=== PATIENT | female | born 1950 | race Caucasian/White ===

== ENCOUNTER 2018-08-04 11:55 | Outpatient (REF) | payer OTHER, SELFPAY ==
--- NOTE | 2018-08-04 09:00 | PAPFT_PTH ---
PATIENT: Stephanie Clinton LOC: [facility] U#:[id number] AGE/SX: 67/F ROOM: RE08/04/[address]: Mae Mcdonnell NP : 1950 BED: DIS: 08/04/2018 SPEC #: [id number] RECD: 08/04/18 12:51 STATUS: BERNARD ORTIZ #: [id number] JOSE: 08/04/18 09:[address]: Mae Mcdonnell NP [facility] Cytology RECD BY: Maki Shipley ENTERED: 08/04/18 12:51 SP TYPE: PAPFT OT DR: None Tissues: 1 - CX/ENDOCX FOR PAP SMEARS Procedures: PAP THIN PREP/UVM Screening HPV DNA PROBE Comments: [id number]
== END 2018-08-04 12:15 ==
LOC: LBN 11:55
PROVIDERS: Visit Provider Nurse Practitioner Women's Health
DX: Z12.4 Encounter for screening for malignant neoplasm of cervix (principal); Z11.51 Encounter for screening for human papillomavirus (HPV)
CPT/HCPCS: 88142; 87624

== ENCOUNTER 2018-08-05 09:04 | Outpatient (CLI) | payer OTHER, SELFPAY ==
--- NOTE | 2018-08-05 13:20 | DI.COMBO_ITS ---
SYMPTOMS/DIAGNOSIS: SCREENING, ENLARGED AXILLARY LYMPH NODES AND THICK TISSUE BILATERALLY, R59.0, N64.59 MAMMOGRAMS, BILATERAL ADDITIONAL VIEWS AND BILATERAL BREAST ULTRASOUND: Mammograms were interpreted according to the usual protocol including computer analysis with CAD system, tomosynthesis and C view imaging. Additional images are interpreted according to the usual protocol including tomosynthesis and 2D imaging. RIGHT MAMMOGRAM, ADDITIONAL VIEWS AND RIGHT BREAST ULTRASOUND: Comparison is made with prior examinations. Breast density C. There are enlarged lymph nodes seen in the right axilla. These appear to have increased in size and irregularity compared to the prior examination. No suspicious intraparenchymal mass or microcalcifications are seen. The skin is unremarkable. A right breast ultrasound was performed. The right axilla was evaluated sonographically. There are multiple lymph nodes seen in the right axilla. The majority of the lymph nodes are hypoechoic with a hyperechoic vascular notch; however, there are several hypoechoic irregular lymph nodes in the right axilla, the largest measures 2 x 1.5 x 1.8 cm. LEFT MAMMOGRAM, ADDITIONAL VIEWS AND LEFT BREAST ULTRASOUND: Breast density C. There are three partially obscured nodules in the upper outer quadrant of the left breast not present on the prior examination. There do appear to be enlarged irregular lymph nodes in the left axilla. No suspicious microcalcifications are seen. The skin is unremarkable. Left breast ultrasound was performed. The upper outer quadrant and left axilla were evaluated sonographically. There is a hypoechoic 0.7 x 0.9 cm nodule at the 3 o'clock position of the left breast 6 cm from the nipple. Its orientation is antiradial. There is a complex cystic lesion at the 3 o'clock position 8 cm from the nipple measuring 0.8 cm. There does appear to be some associated blood flow. At the 2 o'clock position of the left breast 9 cm from the nipple, there is a radially oriented well circumscribed hypoechoic nodule measuring 0.8 cm. No internal blood flow, posterior acoustic enhancement or shadowing is seen. In the left axilla, multiple lymph nodes are seen, most are hypoechoic with a hyperechoic vascular notch. There are a few enlarged homogeneously hypoechoic nodules in the left axilla, the largest measuring 2.2 x 1.7 x 1.7 cm.. IMPRESSION: 1. Left breast nodules as described, the largest measuring 1.1 cm. These are located in the upper outer quadrant of the left breast and appear to correspond to the mammographic findings. 2. Sonographically abnormal-appearing lymph nodes in the axilla bilaterally. In this patient, followup is recommended. This may include biopsy of breast lesions and abnormal axillary lymph nodes. Alternatively, an MRI of the breast with and without contrast and CT scans of the neck and chest are recommended with contrast to assess for additional adenopathy. Category 4, breast density C. The findings were discussed with the patient on the date of the examination. Mae Mcdonnell was also contacted with these results on the date of the examination. [facility] ASSESSMENT OF FINDINGS: Suspicious. Biopsy should be considered. Category 4. Patient will receive a letter notifying them of these results. Bi-RADS category C. The breasts are heterogeneously dense, which may obscure small masses.
== END 2018-08-05 09:24 ==
PROVIDERS: Visit Provider Nurse Practitioner Women's Health
DX: N64.59 Other signs and symptoms in breast (principal); R59.0 Localized enlarged lymph nodes; Z12.31 Encounter for screening mammogram for malignant neoplasm of breast; N63.21 Unspecified lump in the left breast, upper outer quadrant
CPT/HCPCS: 76642; 77062; 77066; G0279

== ENCOUNTER 2018-08-17 00:33 | Outpatient (CLI) | payer OTHER, SELFPAY ==
[2018-08-17 09:08] LABS: CREATININE 1.14 mg/dL (0.55-1.02); Estimated GFR 47.69 (mL/min/1.73m2)
--- NOTE | 2018-08-17 10:50 | DI.CT_ITS ---
SYMPTOMS/DIAGNOSIS: CERVICAL, AXILLARY AND INGUINAL LYMPHADENOPATHY, R59.1, ENLARGED LYMPH NODE CT SCAN OF THE NECK, CHEST, ABDOMEN AND PELVIS: CT SCAN OF THE ABDOMEN AND PELVIS: The liver is normal in size. No hepatic masses seen. The portal, superior mesenteric and splenic veins are patent. The patient is status post cholecystectomy. No biliary ductal dilatation is present. There is fatty atrophy of the pancreas. The spleen is enlarged measuring 14 cm. There is no evidence of an adrenal mass. There is extensive retroperitoneal, inguinal and iliac adenopathy present. There is extensive soft tissue seen at the level of the renal arteries, particularly on the left paraaortic region. There is soft tissue which appears to encircle the left renal vein. In aggregate, this area measures 6 x 5.7 cm. It extends inferiorly along the left paraaortic region and causes obstruction of the left ureter with moderate dilatation of the left renal collecting system and delayed enhancement of the left kidney. Extensive paraaortic adenopathy and aortocaval adenopathy is present. Just above the level of the aortic bifurcation, there is extensive adenopathy on the right measuring 2.3 x 3.1 cm, on the left measuring 3.3 x 3.4 cm. External iliac adenopathy is seen bilaterally. On the left, it measures 4.8 x 2.6 cm. On the right, there is a 3.6 x 1.8 cm lymph node. Extensive bilateral inguinal adenopathy is present; on the left measuring 3.5 x 2.2 cm, on the right measuring 3.2 x 1.9 cm. The right kidney shows normal enhancement. There is mild dilatation of the proximal right ureter to the level of the bifurcation of the common iliac artery. The urinary bladder is intact. There are calcified masses seen in the uterus, most consistent with calcified uterine fibroids. There is diverticulosis of the sigmoid colon, but no evidence of acute diverticulitis. There is a moderate amount of retained stool in the colon. No findings to suggest an acute appendicitis are present. A normal appendix is seen in the right lower quadrant. No significant abdominal or pelvic ascites or pneumoperitoneum is present. There is atherosclerosis of the abdominal aorta but no aneurysmal dilatation is seen. There is extensive retroperitoneal adenopathy surrounding the abdominal aorta and common iliac arteries bilaterally. Degenerative changes are seen in the spine. IMPRESSION: 1. Extensive abdominal and pelvic adenopathy. The findings are suspicious for lymphoma or leukemia. Metastatic disease should also be considered. 2. Bilateral retroperitoneal adenopathy causing mild obstruction of the right kidney. There is marked obstruction of the left kidney with delayed enhancement and dilatation of the collecting system. 3. Extensive retroperitoneal adenopathy surrounding the abdominal aorta. 4. Incidental findings of colonic diverticulosis and fibroid uterus. CT SCAN OF THE CHEST: There is extensive supraclavicular, axillary and mediastinal adenopathy present. The largest lymph node in the left axilla measures 2.8 x 2.7 cm. The largest lymph node in the right axilla measures 2.8 x 1.5 cm. The largest lymph node in the mediastinum measures 1.3 cm. The abdominal aorta is of normal caliber. Heart size is within normal limits. No significant pericardial effusion is seen. No pleural effusion or pneumothorax is identified. Atelectatic changes are seen in the lung bases. There is scarring or atelectasis in the lingula. No focal consolidating infiltrates are seen. The tracheobronchial tree is unremarkable. No noncalcified pulmonary nodules are appreciated. Degenerative changes are seen in the spine. IMPRESSION: Extensive thoracic adenopathy. Lymphoma or leukemia should be considered including metastatic disease. Inflammatory or infectious adenopathy may also be considered. CT SCAN OF THE NECK: There is extensive supraclavicular and cervical adenopathy present. The largest lymph node in the left neck is seen at the angle of the mandible and measures 1.3 x 1.4 cm. The largest lymph node in the right neck is also at the angle of the mandible and measures 1.9 x 1.5 cm. The nasopharynx, oropharynx, hypopharynx and larynx are unremarkable. The thyroid has a normal appearance. The submandibular gland appears unremarkable. There are hyperdense nodules seen within and next to the parotid gland, likely reflecting adenopathy. The retropharyngeal space has a normal appearance. The orbits and retroorbital soft tissues are unremarkable. The visualized paranasal sinuses are clear. The mastoid air cells are well pneumatized. The calvarium is intact. IMPRESSION: Extensive cervical adenopathy.
[2018-08-17] MEDS: Omnipaque 350 MG/ML 100 ML BTL IJ (11:00)
[2018-08-17] MEDS: Omnipaque 350 MG/ML 50 ML BTL PO (11:01)
[2018-08-17] MEDS: Breeza Beverage 473 ML BTL PO (11:01)
== END 2018-08-17 00:53 ==
PROVIDERS: Visit Provider Surgery
DX: R59.1 Generalized enlarged lymph nodes (principal); D25.9 Leiomyoma of uterus, unspecified; K57.30 Diverticulosis of large intestine without perforation or abscess without bleeding
CPT/HCPCS: 70491; 74177; 71260; 82565; J3490; Q9967

== ENCOUNTER 2018-08-24 07:28 | Day surgery (SDC) | payer OTHER, SELFPAY ==
--- NOTE | 2018-08-24 07:20 | ROE_ITS ---
Date of service: 08/24/18 Time of Service: 08:48 Operative Note DATE OF PROCEDURE: 08/24/18 PRE-OP DIAGNOSIS: General Lymphadenopathy POST-OP DIAGNOSIS: same PROCEDURE: Open right inguinal lymph node biopsy SURGEON: Megan Nevarez ANESTHESIA: other (general/ ASA 2/ Jeff Montoya, AUREA) ESTIMATED BLOOD LOSS: 5 PATHOLOGY: other (lymph node) COMPLICATIONS: None Patient was transported to: same day Patient's condition: stable Indications: Mrs. Clinton is a pleasant 67 year old female who was seen in the office for lymphadenopathy and question Breast lesion. CT scan showed extensive lymphadenopathy throughout. Biopsy was recommended for diagnosis. Risks, benefits and complications were reviewed and she wished to proceed. No guarantees were given or impleid. Findings: Enlarge lymphnodes Procedure Description: After informed consent was obtained the patient was taken to the Operating room and placed in a supine position on the bed. The patient was placed under General anesthesia without airway. Once comfortable the right groin was prepped and adraped in a standard surgical fashion. At this point a time out was done. The patients name, , procedure site and type, allergies to medications, antibiotic prophilaxis and DVT prophilaxis were reviewed. Fire risk was assessed. Next 0.25% Bupivocaine was injected in the right groin over a palpable lymph node. A 2 cm incision was made with a 15 blade. Dissection was taken down to the subcutaneous tissue with cautery. The fascia was opened with cuatery. A Weitlander retractor was used to keep the skin and subcutaneous tissue . Using a hemostat the fat was dissected away from an enlarged lymph node. The dissection was continued all around. Cautery was used to go through the efferent and afferent vessels. The lymph node was removed and placed in formalin. The wound was inspected. No bleeding was noted. The subcutaneous tis gloria was re-approximated using a 3-0 Vicryl interreptued stitch. The dermis was re-approximated using 4-0 vicryl running stitch. The skin was cleaned and dried and skinafix was applied. Needle, instrument and lap counts were correct at the end of the case. The patient was woken up and taken back to [facility] in stable condition.
--- NOTE | 2018-08-24 07:20 | W.PM.DSUDISC ---
Discharge Plan Disposition Patient Disposition: HOME Condition: Good Discharge Details Reason For Visit: Generalized lymphadenopathy Attending Provider: Megan Nevarez Primary Care Provider: None,None Home Meds and New Rx's Prescriptions: New acetaminophen [Tylenol] 325 mg Tablet 650 mg PO Q6H PRN (Reason: pain) Qty: 30 RF: 0 ibuprofen [IBU] 600 mg Tablet 600 mg PO Q6H PRN PRN (Reason: Pain) Qty: 30 RF: 0 Continued vitamin B complex [B Complex 1] tablet 1 tab PO DAILY RF: 0 biotin 5 mg capsule 5 mg PO DAILY RF: 0 ketotifen fumarate [Zaditor] 0.025 % (0.035 %) Drops 1 drp OPHTHALMIC (EYE) BID RF: 0 Discharge Instructions Instructions: Lymph Node Biopsy (DC) Additional Instructions: Activity at Home after surgery: 1. Make sure you walk outside at least 4 times per day 2. You should be able to climb a flight of stairs 3. No driving while in pain or taking pain medications 4. No strenuous activity or heavy lifting for 2 weeks (laparoscopic surgery) or 4 weeks (open surgery) Diet, Nutrition, & wound healin. Avoid alcohol until after you are recovered from your surgery 2. Make sure to eat plenty of lean protein (meat, fish, eggs, cottage cheese, beans) 3. Eat a variety of fruits and vegetables. Eat plenty of high fiber foods to avoid constipation. 4. Drink plenty of liquids to stay hydrated and avoid constipation Pain Medications: 1. Alternate Tylenol 1000 mg and Ibuprofen 600 mg every 3 hours 2. If a narcotic has been prescribed take as directed only for breakthrough pain For Constipation: 1. Take Milk of Magnesia or MiraLax as needed for constipation Other: 1. You may shower daily. Do not scrub the incisions 2. Do not soak the incisions for 1 week 3. You may alternate ice and heat as needed for pain and swelling Wound Care: 1. Keep the incisions clean and dry Other Services that may have been ordered: 0 Home Health- to help with dressing changes 0 Outpatient physical therapy Please call our office if you develop: 1. Fevers >101.5 2. Nausea or Vomiting 3. Worsening pain 4. Redness and thick discharge from the wounds If after hours please call the Hospital at and ask to speak to the on-call surgeon Stand Alone Forms: DSU Post op Instructions, Wang Nair (DSU) Referrals: Megan Nevarez MD [ [facility] STAFF PHYSICIAN] - 09/06/18 1:30 pm Activity:: Activity as Tolerated Diet:: As Tolerated Discharge Orders Discharge Orders: Discharge Order (Routine); Ordered 08/24/18 Ordered By: Megan Nevarez DS: Diagnosis Discharge Diagnosis (1) Lymphadenopathy, generalized: Status: Acute (2) H/O lymph node excision: Status: Acute
--- NOTE | 2018-08-24 07:25 | PDOC.DSDIS_ITS ---
Discharge Plan Disposition Patient Disposition: HOME Condition: Good Discharge Details Reason For Visit: Generalized lymphadenopathy Attending Provider: Megan Nevarez Primary Care Provider: None,None Home Meds and New Rx's Prescriptions: New acetaminophen [Tylenol] 325 mg Tablet 650 mg PO Q6H PRN (Reason: pain) Qty: 30 RF: 0 ibuprofen [IBU] 600 mg Tablet 600 mg PO Q6H PRN PRN (Reason: Pain) Qty: 30 RF: 0 Continued vitamin B complex [B Complex 1] tablet 1 tab PO DAILY RF: 0 biotin 5 mg capsule 5 mg PO DAILY RF: 0 ketotifen fumarate [Zaditor] 0.025 % (0.035 %) Drops 1 drp OPHTHALMIC (EYE) BID RF: 0 Discharge Instructions Instructions: Lymph Node Biopsy (DC) Additional Instructions: Activity at Home after surgery: 1. Make sure you walk outside at least 4 times per day 2. You should be able to climb a flight of stairs 3. No driving while in pain or taking pain medications 4. No strenuous activity or heavy lifting for 2 weeks (laparoscopic surgery) or 4 weeks (open surgery) Diet, Nutrition, & wound healin. Avoid alcohol until after you are recovered from your surgery 2. Make sure to eat plenty of lean protein (meat, fish, eggs, cottage cheese, beans) 3. Eat a variety of fruits and vegetables. Eat plenty of high fiber foods to avoid constipation. 4. Drink plenty of liquids to stay hydrated and avoid constipation Pain Medications: 1. Alternate Tylenol 1000 mg and Ibuprofen 600 mg every 3 hours 2. If a narcotic has been prescribed take as directed only for breakthrough pain For Constipation: 1. Take Milk of Magnesia or MiraLax as needed for constipation Other: 1. You may shower daily. Do not scrub the incisions 2. Do not soak the incisions for 1 week 3. You may alternate ice and heat as needed for pain and swelling Wound Care: 1. Keep the incisions clean and dry Other Services that may have been ordered: 0 Home Health- to help with dressing changes 0 Outpatient physical therapy Please call our office if you develop: 1. Fevers >101.5 2. Nausea or Vomiting 3. Worsening pain 4. Redness and thick discharge from the wounds If after hours please call the Hospital at and ask to speak to the on-call surgeon Stand Alone Forms: DSU Post op Instructions, Wang Nair (DSU) Referrals: Megan Nevarez MD [ [facility] STAFF PHYSICIAN] - 09/06/18 1:30 pm Activity:: Activity as Tolerated Diet:: As Tolerated Discharge Orders Discharge Orders: Discharge Order (Routine); Ordered 08/24/18 Ordered By: Megan Nevarez DS: Diagnosis Discharge Diagnosis (1) Lymphadenopathy, generalized: Status: Acute (2) H/O lymph node excision: Status: Acute
[2018-08-24 07:50] VITALS: BP 145/82; PULSE 73; RESP 16; TEMP 36.9; O2SAT 96
[2018-08-24] MEDS: Lactated Ringers 1,000 ML 80 ML IV (08:03)
[2018-08-24] MEDS: ceFAZolin 2 GM/50 ML BAG IVPB (08:37)
[2018-08-24] MEDS: Bupivacaine 0.25% Pres-Free 30 ML VIAL (08:48)
--- NOTE | 2018-08-24 08:55 | LYM_PTH ---
PATIENT: Stephanie Clinton LOC: [facility] U#:[id number] AGE/SX: 67/F ROOM: RE08/24/[address]: Megan Nevarez MD : 1950 BED: DIS: 08/24/2018 SPEC #: [id number] RECD: 08/24/18 12:59 STATUS: BERNARD REQ #: [id number] JOSE: 08/24/18 08:[address]: Megan Nevarez DEPT: Surgical Specimen RECD BY: Maki Shipley ENTERED: 08/24/18 13:00 SP TYPE: LYM OTHR DR: None Tissues: 1 - LYMPH NODE BIOPSY Procedures: GROSS AND MICRO LEVEL 4 IMMUNOPEROXIDASE STAIN MIB-1 IHC Semi Quantative % Comments: [id number]
[2018-08-24] MEDS: Bupivacaine LIPOSOME/PF 133 MG/10 ML VIAL IJ (08:57)
[2018-08-24 09:46] VITALS: BP 138/69; PULSE 60; RESP 16; TEMP 36.6; O2SAT 98
== END 2018-08-24 10:15 | disposition home or self-care (01) ==
LOC: SUR 07:29
PROVIDERS: Referring Provider Surgery; Visit Provider Surgery
PROC: (CPT 38500; principal; 2018-08-24 09:00)
DX: C82.15 Follicular lymphoma grade II, lymph nodes of inguinal region and lower limb (principal); C82.05 Follicular lymphoma grade I, lymph nodes of inguinal region and lower limb
CPT/HCPCS: 38500; 88305; 88360; 88361; J0690; J2250; J2405

== ENCOUNTER 2018-09-26 10:37 | Day surgery (SDC) | payer OTHER, SELFPAY ==
--- NOTE | 2018-09-26 06:55 | HPE_ITS ---
Date of service: 09/26/18 Time of Service: 12:16 Assessment and Plan (1) Non Hodgkin's lymphoma: Current visit: No Status: Chronic A\\ Non-Hodgkins lymphoma Needs Medi-port for Chemotherapy P\\ Subclavian vein Port placement Risks, benefits, complications of the procedure were reviewed with her. Complications include but are not limited to bleeding infection seroma hematoma wound dehiscence skin necrosis, pneumothorax, injury to subclavian vein or artery, mouth function and adverse reaction to the medications. Questions were entertained and answered to her satisfaction and she wished to proceed. No guarantees were given or implied. Qualifiers: Follicular lymphoma grade: grade IIIa Lymphoma site: multiple regions Non-Hodgkin lymphoma type: follicular Qualified Code(s): C82.38 - Follicular lymphoma grade IIIa, lymph nodes of multiple sites History of Present Illness Narrative: Mrs. Clinton is here today to discuss placement of a Mediport for chemotherapy. She was recently diagnosed with non-Hodgkin's lymphoma. The patient has been started on prednisone by oncology to reduce some of the obstructive nature of her lymphadenopathy in the abdomen. She is getting ready to start her first chemotherapy treatment this week. Review of Systems Constitutional Denies fever(s) and Denies night sweats Cardiovascular Denies chest pain, Denies rapid heart rate, Denies irregular heart rhythm, Denies palpitations, Denies dyspnea and Denies dyspnea on exertion Respiratory Denies cough, Denies dyspnea and Denies dyspnea on exertion Endocrine Denies palpitations [facility] Medical History Lymphadenopathy, generalized (Acute) Non Hodgkin's lymphoma (Chronic) Osteoarthritis (Chronic) Rosacea (Acute) Telogen effluvium (Chronic) Surgical History Colonoscopy - MAC (12/13/15) H/O lymph node excision (Acute ~08/24/18) History of cholecystectomy (Chronic) History of knee replacement (Chronic) Family History Sister Colon cancer Breast CA Brother Brain cancer Father Heart failure Heart disease Maternal Grandfather Tiffanie syndrome Paternal Grandfather Stroke Mother Alzheimer disease Social History Smoking/Tobacco Use Status: Former Tobacco Use Quit Date: 03/08/94 Alcohol Intake: current Alcohol Intake frequency: 3 or more drinks per day Alcohol type: wine and hard liquor Drug use: Never Substance use type: does not use Details: Pt states 2-3, usually wine/daily; quit smoking est 1988. Last alcohol: t-1, one drink Do you feel safe at home: Yes Do you feel safe in your relationship?: Yes Female Reproductive History Menstrual Menopause type: natural Meds Home Medications Medication Instructions Recorded Confirmed Type biotin 5 mg capsule 5 mg PO DAILY 08/04/18 09/26/18 History vitamin B complex 1 tab PO DAILY 08/04/18 09/26/18 History acetaminophen [Tylenol] 650 mg PO Q6H PRN #30 tab 08/24/18 09/06/18 Rx ibuprofen [IBU] 600 mg PO Q6H PRN PRN #30 tab 08/24/18 09/26/18 Rx prednisone 60 mg PO DAILY 09/26/18 09/26/18 History Allergies Allergy/AdvReac Type Severity Reaction Status Date / Time No Known Drug Allergies Allergy Verified 09/26/18 10:51 Exam Const General: cooperative Orientation: alert and oriented x3 HENMT Head: normocephalic and atraumatic Resp Effort & Inspection: normal respiratory effort Auscultation: clear to auscultation bilaterally Cardio Rate: regular rate Rhythm: regular rhythm Heart Sounds: no gallops, no murmurs and no rubs
--- NOTE | 2018-09-26 07:00 | W.PM.OP ---
Date of service: 09/26/18 Time of Service: 14:02 Operative Note DATE OF PROCEDURE: 09/26/18 PRE-OP DIAGNOSIS: Non-Hodgkins lymphoma POST-OP DIAGNOSIS: same PROCEDURE: left Subclavian vein Port-a-cath placement SURGEON: Megan Nevarez ANESTHESIA: other (General/ ASA 2/Moe Nowak CRNA ) ESTIMATED BLOOD LOSS: 5 PATHOLOGY: none sent COMPLICATIONS: None Patient was transported to: same day Patient's condition: stable Implants: Power Port REF [id number] Indications: Mrs. Clinton is a pleasant 67-year-old female who I recently diagnosed with non-Hodgkin's lymphoma. She was seen by hematology oncology and has been started on prednisone. She is due to start chemotherapy this week. I was asked to place a Mediport for chemotherapy. Risks, benefits and complications were reviewed with her and she wished to proceed. No guarantees were given or implied. Procedure Description: After informed consent was obtained the patient was taken to the operating room and placed in supine position. The patient was placed under deep sedation and once comfortable the right and left chest were prepped and draped in a sterile surgical fashion. At this point a timeout was done. The patient's name, date of , procedure to be done, potential complications, DVT prophylaxis, antibiotic given were all reviewed. Fire risk was assessed. Next 2% lidocaine mixed with half percent Marcaine with epi was injected around the clavicle on the left side as well as into the dermis and subcutaneous tissue of the left chest wall about 1 1/2 below the clavicle. A power port kit was opened and using the large 18-gauge needle the subclavian vein was found and venous blood was easily aspirated. The syringe was removed and the guidewire was placed without any difficulty into the subclavian vein. The needle was removed. Fluoroscopy was then done which confirmed the placement of the guidewire. A small incision was made in the skin with the guidewire entered. An incison was also made into the dermis about 1 1/2 below the clavicle with a 15 blade. Using cautery a pocket was created for the port. Using the tunneler the catheter was tunneled from the newly created pocket to the guidewire. An attempt was made to place the dilator and sheath over the guidewire into the subclavian vein, but there was too much resistance. The dilator and sheeth were removed as was the guidewire. The Subclavian vein was again found with the 18 guage needle and a wire was again placed with difficulty. Fluoroscopy was again done to confirm placement. The dilator and sheeth were placed over the guidewire into the subclavian vein without difficulty. The dilator and guidewire were removed. The catheter was then advanced through the sheath into the subclavian vein. While holding the catheter in place at the skin the sheath was removed. Fluoroscopy was then used again and the catheter was noted to be within the atrium and so it was pulled up until it was just above the atrium. The catheter was then cut to the right length and attached to the port. The port was placed into the pocket and fit snugly. The port was then flushed with 10 cc of heparin. The skin was closed using 4-0 Vicryl. The skin was cleaned and dried and skin affix was applied to the port site as well as to the small stab incision underneath the clavicle. The patient was woken up and taken back to same day surgery in stable condition. Sponge, instrument, and needle counts were correct at the end of the case. A stat chest x-ray was ordered and done in same-day surgery it was read by me and it looked in good position and no pneumothorax was appreciated.
--- NOTE | 2018-09-26 07:04 | W.PM.DSUDISC ---
Discharge Plan Disposition Patient Disposition: HOME Condition: Good Discharge Details Reason For Visit: NON HODGKINS LYMPHOMA Attending Provider: Megan Nevarez Primary Care Provider: None,None Home Meds and New Rx's Prescriptions: Continued vitamin B complex [B Complex 1] tablet 1 tab PO DAILY RF: 0 biotin 5 mg capsule 5 mg PO DAILY RF: 0 acetaminophen [Tylenol] 325 mg Tablet 650 mg PO Q6H PRN (Reason: pain) Qty: 30 RF: 0 ibuprofen [IBU] 600 mg Tablet 600 mg PO Q6H PRN PRN (Reason: Pain) Qty: 30 RF: 0 No Action prednisone 20 mg Tablet 60 mg PO DAILY RF: 0 Discharge Instructions Instructions: Implanted Venous Access Port (GEN) Additional Instructions: Activity at Home after surgery: 1. Make sure you walk outside at least 4 times per day 2. You should be able to climb a flight of stairs 3. No driving while in pain or taking pain medications 4. No strenuous activity or heavy lifting for 2 weeks (laparoscopic surgery) Diet, Nutrition, & wound healin. Avoid alcohol until after you are recovered from your surgery 2. Make sure to eat plenty of lean protein (meat, fish, eggs, cottage cheese, beans) 3. Eat a variety of fruits and vegetables. Eat plenty of high fiber foods to avoid constipation. 4. Drink plenty of liquids to stay hydrated and avoid constipation Pain Medications: 1. Alternate Tylenol 650 mg and Ibuprofen 600 mg every 3 hours 2. If a narcotic has been prescribed take as directed only for breakthrough pain For Constipation: 1. Take Milk of Magnesia or MiraLax as needed for constipation Other: 1. You may shower daily. Do not scrub the incisions 2. Do not soak the incisions for 1 week 3. You may alternate ice and heat as needed for pain and swelling Wound Care: 1. Keep the incisions clean and dry Please call our office if you develop: 1. Fevers >101.5 2. Nausea or Vomiting 3. Worsening pain 4. Redness and thick discharge from the wounds If after hours please call the Hospital at and ask to speak to the on-call surgeon Activity:: Activity as Tolerated Diet:: As Tolerated DS: Diagnosis Discharge Diagnosis (1) Non Hodgkin's lymphoma: Status: Chronic
[2018-09-26 10:57] VITALS: BP 136/77; PULSE 65; RESP 16; TEMP 36.5; O2SAT 96
[2018-09-26] MEDS: Lactated Ringers 1,000 ML 80 ML IV (11:35)
[2018-09-26] MEDS: ceFAZolin 2 GM/50 ML BAG IVPB (13:33)
[2018-09-26] MEDS: Heparin 500 UNITS/5 ML SYRINGE (13:49)
[2018-09-26] MEDS: Lidocaine 2% Multi-Dose 50 ML VIAL (13:49)
--- NOTE | 2018-09-26 13:57 | DI.RAD_ITS ---
SYMPTOMS/DIAGNOSIS: PORT PLACEMENT PORT PLACEMENT IN THE OR: Fluoroscopy Time: 22.9 S, 3.34 mGY Fluoroscopy was utilized by Dr. Nevarez during the placement of an indwelling central venous catheter. Single hardcopy image shows the tip of the catheter in good position in the region of the superior vena cava. Please refer to the procedure report for complete details. PORTABLE AP CHEST: The heart size and pulmonary vasculature are within normal limits. An indwelling central venous catheter is in place. The tip of the catheter is in good position in the superior vena cava. No pneumothorax or pleural effusion is seen. No focal consolidating infiltrates are present in the lungs. IMPRESSION: Placement of a Mediport. No pneumothorax or pleural effusion.
[2018-09-26 14:27] VITALS: BP 118/70; PULSE 59; RESP 16; TEMP 36.6; O2SAT 99
== END 2018-09-26 15:50 | disposition home or self-care (01) ==
LOC: SUR 10:38
PROVIDERS: Visit Provider Surgery
PROC: (CPT 36561; principal; 2018-09-26 11:15)
DX: C82.38 Follicular lymphoma grade IIIa, lymph nodes of multiple sites (principal); Z45.2 Encounter for adjustment and management of vascular access device
CPT/HCPCS: 36561; 71045; 76000; 77001; NC; C1788; J0690; J1100; J1885; J2250; J2405; J3010

== ENCOUNTER 2018-10-26 01:37 | Outpatient (RCR) | payer OTHER, SELFPAY ==
[2018-10-12] MEDS: Normal Saline Flush 10 ML SYR IVP (11:05)
[2018-10-12] MEDS: Heparin 500 UNITS/5 ML SYRINGE IV (11:05)
[2018-10-12 11:28] LABS: Abs Immature Grans 0.01 k/cumm (0.0-0.09); Absolute Basophil Count 0.12 k/cumm (0.0-0.2); Absolute Lymphocyte Count 1.07 k/cumm (1.2-3.4); Absolute Monocyte Count 0.66 k/cumm (0.11-0.7); Absolute Neutrophil Count 2.48 k/cumm (1.2-6.7); Basophils % 2.6; Eosinophils % 6.5; HCT 35.9 % (36.0-46.0); Immature Grans % 0.2; Lymphocytes % 23.1; Mean Corp. HGB Concentration 33.4 g/dL (32.0-36.0); Mean Corpuscular Hemoglobin 31.5 pg (27.0-33.0); Mean Corpuscular Volume 94.2 fL (80-95); Mean Platelet Volume 9.9 fL (8.0-11.0); Monocytes % 14.2; Neutrophils % 53.4; Platelet Count 130 x1000/uL (130-400); RBC 3.81 m/cumm (4.00-5.20); RBC Distribution Width 12.5 % (11.7-14.6); White Blood Cell Count 4.64 k/cumm (4.4-10.8)
[2018-10-12 11:50] LABS: ALT 16 U/L (12-78); AST 10 U/L (15-37); Albumin 3.5 g/dL (3.4-5.0); Alkaline Phosphatase 63 U/L (46-116); Anion Gap 9.7 mmol/L (3-11); BUN 16 mg/dL (7-18); Bilirubin, Total 0.6 mg/dL (0.2-1.0); CO2 26.3 mmol/L (21.0-32.0); CREATININE 1.07 mg/dL (0.55-1.02); Calcium 9.2 mg/dL (8.5-10.1); Chloride 105 mmol/L (98-107); Estimated GFR 51.31 (mL/min/1.73m2); Glucose 92 mg/dL (70-100); LDH 185 U/L (81-234); Potassium 4.2 mmol/L (3.5-5.1); Sodium 141 mmol/L (136-145); Total Protein 7.1 g/dL (6.4-8.2)
[2018-10-26] MEDS: Normal Saline Flush 10 ML SYR IVP (07:35)
[2018-10-26 07:37] LABS: Abs Immature Grans 0.01 k/cumm (0.0-0.09); Absolute Basophil Count 0.11 k/cumm (0.0-0.2); Absolute Eosinophil Count 0.14 k/cumm (0.0-0.7); Absolute Lymphocyte Count 1.48 k/cumm (1.2-3.4); Absolute Monocyte Count 0.42 k/cumm (0.11-0.7); Absolute Neutrophil Count 2.53 k/cumm (1.2-6.7); Basophils % 2.3; HCT 38.6 % (36.0-46.0); HGB 12.7 g/dL (12.0-15.5); Immature Grans % 0.2; Lymphocytes % 31.6; Mean Corp. HGB Concentration 32.9 g/dL (32.0-36.0); Mean Corpuscular Hemoglobin 31.1 pg (27.0-33.0); Mean Corpuscular Volume 94.4 fL (80-95); Mean Platelet Volume 9.7 fL (8.0-11.0); Neutrophils % 53.9; Platelet Count 174 x1000/uL (130-400); RBC 4.09 m/cumm (4.00-5.20); RBC Distribution Width 12.2 % (11.7-14.6); White Blood Cell Count 4.69 k/cumm (4.4-10.8)
[2018-10-26 07:50] LABS: ALT 19 U/L (12-78); AST 13 U/L (15-37); Albumin 3.5 g/dL (3.4-5.0); Alkaline Phosphatase 56 U/L (46-116); Anion Gap 12.8 mmol/L (3-11); BUN 20 mg/dL (7-18); Bilirubin, Total 0.2 mg/dL (0.2-1.0); CO2 22.2 mmol/L (21.0-32.0); Calcium 9.1 mg/dL (8.5-10.1); Chloride 109 mmol/L (98-107); Estimated GFR 49.69 (mL/min/1.73m2); Glucose 104 mg/dL (70-100); LDH 157 U/L (81-234); Potassium 4.1 mmol/L (3.5-5.1); Sodium 144 mmol/L (136-145); Total Protein 6.6 g/dL (6.4-8.2)
== END 2018-11-05 23:59 | disposition home or self-care (01) ==
LOC: INF 01:37
PROVIDERS: Visit Provider Internal Medicine Hematology & Oncology
DX: C82.18 Follicular lymphoma grade II, lymph nodes of multiple sites (principal); Z45.2 Encounter for adjustment and management of vascular access device
CPT/HCPCS: 36591; 80053; 83615; 85025

== ENCOUNTER 2018-11-23 02:03 | Outpatient (RCR) | payer OTHER, SELFPAY ==
[2018-11-09] MEDS: Heparin 500 UNITS/5 ML SYRINGE IV (08:45)
[2018-11-09] MEDS: Normal Saline Flush 10 ML SYR IVP (08:45)
[2018-11-09 08:57] LABS: Abs Immature Grans 0.01 k/cumm (0.0-0.09); Absolute Basophil Count 0.05 k/cumm (0.0-0.2); Absolute Eosinophil Count 0.21 k/cumm (0.0-0.7); Absolute Lymphocyte Count 0.53 k/cumm (1.2-3.4); Absolute Monocyte Count 0.36 k/cumm (0.11-0.7); Absolute Neutrophil Count 2.57 k/cumm (1.2-6.7); Basophils % 1.3; Eosinophils % 5.6; HCT 39.1 % (36.0-46.0); HGB 13.1 g/dL (12.0-15.5); Immature Grans % 0.3; Lymphocytes % 14.2; Mean Corp. HGB Concentration 33.5 g/dL (32.0-36.0); Mean Corpuscular Hemoglobin 31.3 pg (27.0-33.0); Mean Corpuscular Volume 93.3 fL (80-95); Mean Platelet Volume 10.1 fL (8.0-11.0); Monocytes % 9.7; Neutrophils % 68.9; Platelet Count 172 x1000/uL (130-400); RBC 4.19 m/cumm (4.00-5.20); RBC Distribution Width 12.6 % (11.7-14.6); White Blood Cell Count 3.73 k/cumm (4.4-10.8)
[2018-11-23] MEDS: Normal Saline Flush 10 ML SYR IVP (08:25)
[2018-11-23 08:42] LABS: Abs Immature Grans 0.01 k/cumm (0.0-0.09); Absolute Basophil Count 0.04 k/cumm (0.0-0.2); Absolute Eosinophil Count 0.15 k/cumm (0.0-0.7); Absolute Lymphocyte Count 0.66 k/cumm (1.2-3.4); Absolute Monocyte Count 0.35 k/cumm (0.11-0.7); Absolute Neutrophil Count 2.18 k/cumm (1.2-6.7); Basophils % 1.2; Eosinophils % 4.4; HGB 12.3 g/dL (12.0-15.5); Immature Grans % 0.3; Lymphocytes % 19.5; Mean Corp. HGB Concentration 33.2 g/dL (32.0-36.0); Mean Corpuscular Hemoglobin 31.1 pg (27.0-33.0); Mean Corpuscular Volume 93.4 fL (80-95); Mean Platelet Volume 9.9 fL (8.0-11.0); Monocytes % 10.3; Neutrophils % 64.3; Platelet Count 145 x1000/uL (130-400); RBC 3.96 m/cumm (4.00-5.20); RBC Distribution Width 12.4 % (11.7-14.6); White Blood Cell Count 3.39 k/cumm (4.4-10.8)
[2018-11-23 08:56] LABS: ALT 19 U/L (14-59); AST 13 U/L (15-37); Albumin 3.5 g/dL (3.4-5.0); Alkaline Phosphatase 60 U/L (46-116); Anion Gap 10.5 mmol/L (3-11); BUN 19 mg/dL (7-18); Bilirubin, Total 0.4 mg/dL (0.2-1.0); CO2 24.5 mmol/L (21.0-32.0); CREATININE 0.96 mg/dL (0.55-1.02); Calcium 9.1 mg/dL (8.5-10.1); Chloride 108 mmol/L (98-107); Estimated GFR 58.15 (mL/min/1.73m2); Glucose 102 mg/dL (70-100); LDH 131 U/L (81-234); Potassium 3.7 mmol/L (3.5-5.1); Sodium 143 mmol/L (136-145); Total Protein 6.5 g/dL (6.4-8.2)
== END 2018-12-05 23:59 | disposition home or self-care (01) ==
LOC: INF 02:03
PROVIDERS: Visit Provider Internal Medicine Hematology & Oncology
DX: C82.18 Follicular lymphoma grade II, lymph nodes of multiple sites (principal); Z45.2 Encounter for adjustment and management of vascular access device
CPT/HCPCS: 36415; 36591; 80053; 96523; 83615; 85025

== ENCOUNTER 2018-12-21 01:53 | Outpatient (RCR) | payer OTHER, SELFPAY ==
[2018-12-21] MEDS: Normal Saline Flush 10 ML SYR IVP (08:55)
[2018-12-21 09:01] LABS: Abs Immature Grans 0.01 k/cumm (0.0-0.09); Absolute Basophil Count 0.05 k/cumm (0.0-0.2); Absolute Eosinophil Count 0.14 k/cumm (0.0-0.7); Absolute Monocyte Count 0.42 k/cumm (0.11-0.7); Absolute Neutrophil Count 2.04 k/cumm (1.2-6.7); Basophils % 1.6; Eosinophils % 4.4; HCT 36.2 % (36.0-46.0); Immature Grans % 0.3; Lymphocytes % 15.8; Mean Corp. HGB Concentration 33.1 g/dL (32.0-36.0); Mean Corpuscular Hemoglobin 30.7 pg (27.0-33.0); Mean Corpuscular Volume 92.6 fL (80-95); Mean Platelet Volume 9.7 fL (8.0-11.0); Monocytes % 13.3; Neutrophils % 64.6; Platelet Count 160 x1000/uL (130-400); RBC 3.91 m/cumm (4.00-5.20); RBC Distribution Width 12.4 % (11.7-14.6); White Blood Cell Count 3.16 k/cumm (4.4-10.8)
[2018-12-21 09:25] LABS: ALT 18 U/L (14-59); AST 17 U/L (15-37); Albumin 3.5 g/dL (3.4-5.0); Alkaline Phosphatase 65 U/L (46-116); Anion Gap 8.9 mmol/L (3-11); BUN 17 mg/dL (7-18); Bilirubin, Total 0.5 mg/dL (0.2-1.0); CO2 25.1 mmol/L (21.0-32.0); CREATININE 0.96 mg/dL (0.55-1.02); Calcium 9.3 mg/dL (8.5-10.1); Chloride 109 mmol/L (98-107); Estimated GFR 57.97 (mL/min/1.73m2); Glucose 94 mg/dL (70-100); LDH 154 U/L (81-234); Potassium 4.1 mmol/L (3.5-5.1); Sodium 143 mmol/L (136-145); Total Protein 6.6 g/dL (6.4-8.2)
[2018-12-21 13:25] LABS: Calculated LDL 210 mg/dL; Cholesterol 291 mg/dL (50-200); HDL Cholesterol 52 mg/dL (40-60); Triglyceride 149 mg/dL (30-150)
== END 2019-01-05 23:59 | disposition home or self-care (01) ==
LOC: INF 01:53
PROVIDERS: PCP Nurse Practitioner Family; Visit Provider Internal Medicine Hematology & Oncology
DX: C82.18 Follicular lymphoma grade II, lymph nodes of multiple sites (principal); Z45.2 Encounter for adjustment and management of vascular access device
CPT/HCPCS: 36591; 80053; 80061; 83615; 85025

== ENCOUNTER 2019-01-31 01:15 | Outpatient (RCR) | payer OTHER, SELFPAY ==
[2019-01-31 12:07] LABS: Abs Immature Grans 0.01 k/cumm (0.0-0.09); Absolute Basophil Count 0.02 k/cumm (0.0-0.2); Absolute Eosinophil Count 0.12 k/cumm (0.0-0.7); Absolute Lymphocyte Count 0.62 k/cumm (1.2-3.4); Absolute Monocyte Count 0.43 k/cumm (0.11-0.7); Absolute Neutrophil Count 2.87 k/cumm (1.2-6.7); Basophils % 0.5; Eosinophils % 2.9; HCT 35.7 % (36.0-46.0); Immature Grans % 0.2; Lymphocytes % 15.2; Mean Corp. HGB Concentration 33.6 g/dL (32.0-36.0); Mean Corpuscular Hemoglobin 30.9 pg (27.0-33.0); Mean Platelet Volume 9.7 fL (8.0-11.0); Monocytes % 10.6; Neutrophils % 70.6; Platelet Count 167 x1000/uL (130-400); RBC 3.88 m/cumm (4.00-5.20); RBC Distribution Width 12.5 % (11.7-14.6); White Blood Cell Count 4.07 k/cumm (4.4-10.8)
[2019-01-31 12:21] LABS: ALT 21 U/L (14-59); AST 18 U/L (15-37); Albumin 3.9 g/dL (3.4-5.0); Alkaline Phosphatase 70 U/L (46-116); Anion Gap 11.8 mmol/L (3-11); BUN 18 mg/dL (7-18); Bilirubin, Total 0.5 mg/dL (0.2-1.0); CO2 23.2 mmol/L (21.0-32.0); CREATININE 0.84 mg/dL (0.55-1.02); Calcium 9.6 mg/dL (8.5-10.1); Chloride 107 mmol/L (98-107); Glucose 110 mg/dL (74-106); LDH 164 U/L (81-234); Potassium 3.9 mmol/L (3.5-5.1); Sodium 142 mmol/L (136-145); Total Protein 6.8 g/dL (6.4-8.2)
[2019-01-31] MEDS: Normal Saline Flush 10 ML SYR IVP (13:17)
== END 2019-02-04 23:59 | disposition home or self-care (01) ==
LOC: INF 01:15
PROVIDERS: PCP Nurse Practitioner Family; Visit Provider Internal Medicine Hematology & Oncology
DX: C82.18 Follicular lymphoma grade II, lymph nodes of multiple sites (principal); Z45.2 Encounter for adjustment and management of vascular access device
CPT/HCPCS: 36415; 80053; 96523; 83615; 85025

== ENCOUNTER 2019-02-22 01:05 | Outpatient (RCR) | payer OTHER, SELFPAY ==
[2019-02-22 11:17] LABS: Abs Immature Grans 0.01 k/cumm (0.0-0.09); Absolute Basophil Count 0.06 k/cumm (0.0-0.2); Absolute Eosinophil Count 0.21 k/cumm (0.0-0.7); Absolute Lymphocyte Count 0.38 k/cumm (1.2-3.4); Absolute Monocyte Count 0.42 k/cumm (0.11-0.7); Absolute Neutrophil Count 2.11 k/cumm (1.2-6.7); Basophils % 1.9; Eosinophils % 6.6; HCT 35.8 % (36.0-46.0); HGB 12.3 g/dL (12.0-15.5); Immature Grans % 0.3; Lymphocytes % 11.9; Mean Corp. HGB Concentration 34.4 g/dL (32.0-36.0); Mean Corpuscular Hemoglobin 31.5 pg (27.0-33.0); Mean Corpuscular Volume 91.6 fL (80-95); Mean Platelet Volume 9.6 fL (8.0-11.0); Monocytes % 13.2; Neutrophils % 66.1; Platelet Count 177 x1000/uL (130-400); RBC 3.91 m/cumm (4.00-5.20); RBC Distribution Width 12.3 % (11.7-14.6); White Blood Cell Count 3.19 k/cumm (4.4-10.8)
[2019-02-22 11:34] LABS: ALT 22 U/L (14-59); AST 19 U/L (15-37); Albumin 3.8 g/dL (3.4-5.0); Alkaline Phosphatase 72 U/L (46-116); BUN 20 mg/dL (7-18); Bilirubin, Total 0.4 mg/dL (0.2-1.0); CREATININE 0.92 mg/dL (0.55-1.02); Calcium 9.6 mg/dL (8.5-10.1); Chloride 108 mmol/L (98-107); Glucose 109 mg/dL (74-106); LDH 160 U/L (81-234); Potassium 4.4 mmol/L (3.5-5.1); Sodium 142 mmol/L (136-145)
== END 2019-03-07 23:59 | disposition home or self-care (01) ==
LOC: INF 01:05
PROVIDERS: PCP Nurse Practitioner Family; Visit Provider Internal Medicine Hematology & Oncology
DX: C82.18 Follicular lymphoma grade II, lymph nodes of multiple sites (principal)
CPT/HCPCS: 36415; 36591; 80053; 83615; 85025

== ENCOUNTER 2019-08-02 10:10 | Outpatient (RCR) | payer OTHER, SELFPAY ==
[2019-08-02] MEDS: Heparin 500 UNITS/5 ML SYRINGE (10:25)
[2019-08-02] MEDS: Normal Saline Flush 10 ML SYR IVP (10:25)
[2019-08-02 10:32] LABS: Abs Immature Grans 0.02 k/cumm (0.0-0.09); Absolute Basophil Count 0.03 k/cumm (0.0-0.2); Absolute Eosinophil Count 0.14 k/cumm (0.0-0.7); Absolute Lymphocyte Count 0.55 k/cumm (1.2-3.4); Absolute Monocyte Count 0.34 k/cumm (0.11-0.7); Absolute Neutrophil Count 1.56 k/cumm (1.2-6.7); Basophils % 1.1; Eosinophils % 5.3; HCT 38.2 % (36.0-46.0); HGB 12.5 g/dL (12.0-15.5); Immature Grans % 0.8 %; Lymphocytes % 20.8; Mean Corp. HGB Concentration 32.7 g/dL (32.0-36.0); Mean Corpuscular Hemoglobin 32.6 pg (27.0-33.0); Mean Corpuscular Volume 99.7 fL (80-95); Mean Platelet Volume 9.7 fL (8.0-11.0); Monocytes % 12.9; Neutrophils % 59.1; Platelet Count 207 x1000/uL (130-400); RBC 3.83 m/cumm (4.00-5.20); RBC Distribution Width 13.3 % (11.7-14.6); White Blood Cell Count 2.64 k/cumm (4.4-10.8)
[2019-08-02 10:44] LABS: ALT 22 U/L (14-59); AST 23 U/L (15-37); Albumin 3.9 g/dL (3.4-5.0); Alkaline Phosphatase 70 U/L (46-116); Anion Gap 9.6 mmol/L (3-11); BUN 18 mg/dL (7-18); Bilirubin, Total 0.5 mg/dL (0.2-1.0); CO2 24.4 mmol/L (21.0-32.0); CREATININE 1.02 mg/dL (0.55-1.02); Calcium 9.4 mg/dL (8.5-10.1); Chloride 106 mmol/L (98-107); Estimated GFR 54.05 (mL/min/1.73m2); Glucose 97 mg/dL (74-106); LDH 243 U/L (81-234); Potassium 4.4 mmol/L (3.5-5.1); Sodium 140 mmol/L (136-145); Total Protein 6.9 g/dL (6.4-8.2)
== END 2019-08-06 23:59 | disposition home or self-care (01) ==
LOC: INF 10:10
PROVIDERS: PCP Nurse Practitioner Family; Visit Provider Internal Medicine Hematology & Oncology
DX: C82.18 Follicular lymphoma grade II, lymph nodes of multiple sites (principal); Z45.2 Encounter for adjustment and management of vascular access device
CPT/HCPCS: 36591; 80053; 83615; 85025

== ENCOUNTER 2019-09-05 01:44 | Outpatient (CLI) | payer OTHER, SELFPAY ==
--- NOTE | 2019-09-05 12:30 | DI.MAMMO_ITS ---
EXAM: MG MAMMO SCREENING CLINICAL HISTORY: screening TECHNIQUE: Bilateral full field digital CC and MLO mammographic images were obtained with 3D tomosyn thesis and utilizing computer aided detection (CAD). COMPARISON: Available for comparison. FINDINGS: Masses/Architectural Distortion: None seen. Microcalcifications: No suspicious pleomorphic-type are seen. Skin Thickening/Nipple Retraction: None. IMPRESSION: 1. No significant interval change with no specific features of malignancy noted. 2. Unless there is more urgent need, screening mammography is recommended, as per [employer] guidelines. BI-RADS Category 1 - Negative Breast Density - Category C - Heterogeneously dense The mammogram demonstrates the patient's breast tissue is dense. Dense breast tissue is very common a nd is not abnormal but dense breast tissue can make it harder to find cancer on a mammogram. Also, de nse breast tissue may increase their breast cancer risk. This information about the result of the [facility] mogram report was provided to the patient to raise their awareness. Use this report when you speak wi th the patient about their risks for breast cancer, which includes their family history. At that time , you may recommend for more screening tests (Ultrasound or MRI) as they might be useful based on the ir risk. A negative radiographic report should not delay biopsy if a dominant or clinically suspicious mass is present. Up to ten percent of cancers are not identified on mammography. A negative report may reinforce clinical impression. Adenosis and dense breasts may obscure an underlying neoplasm. False positive reports average 6 to 10%. Patient will receive a letter notifying them of these results.
== END 2019-09-05 02:04 ==
PROVIDERS: PCP Nurse Practitioner Family; Visit Provider Nurse Practitioner Women's Health
DX: Z12.31 Encounter for screening mammogram for malignant neoplasm of breast (principal)
CPT/HCPCS: 77063; 77067

== ENCOUNTER 2019-10-17 10:35 | Outpatient (RCR) | payer OTHER, SELFPAY ==
[2019-10-17 10:59] LABS: Abs Immature Grans 0.04 10^3/uL (0.0-0.06); Absolute Basophil Count 0.04 10^3/uL (0.0-0.2); Absolute Eosinophil Count 0.12 10^3/uL (0.0-0.7); Absolute Lymphocyte Count 0.54 10^3/uL (1.2-3.4); Absolute Monocyte Count 0.42 10^3/uL (0.1-0.8); Absolute Neutrophil Count 1.62 10^3/uL (1.2-6.7); Basophils % 1.4; Eosinophils % 4.3; HCT 39.4 % (36.0-46.0); HGB 12.8 g/dL (11.2-15.7); Immature Grans % 1.4; Lymphocytes % 19.4; MCH 32.8 pg (27.0-33.0); MCHC 32.5 % (32.0-36.0); MPV 10.3 fL (8.0-11.0); Monocytes % 15.1; Neutrophils % 58.4; Nucleated RBC 0 %; Platelet Count 150 10^3/uL (130-400); RDW-SD 48.3 fL; WBC 2.78 10^3/uL (4.4-10.8)
[2019-10-17] MEDS: Heparin 500 UNITS/5 ML SYRINGE (11:05)
[2019-10-17] MEDS: Normal Saline Flush 10 ML SYR IVP (11:06)
[2019-10-17 11:15] LABS: ALT 20 U/L (14-59); AST 21 U/L (15-37); Albumin 3.8 g/dL (3.4-5.0); Alkaline Phosphatase 58 U/L (46-116); Anion Gap 7.8 mmol/L (3-11); BUN 20 mg/dL (7-18); Bilirubin, Total 0.6 mg/dL (0.2-1.0); CO2 27.2 mmol/L (21.0-32.0); CREATININE 0.91 mg/dL (0.55-1.02); Calcium 9.2 mg/dL (8.5-10.1); Chloride 106 mmol/L (98-107); Glucose 102 mg/dL (74-106); LDH 247 U/L (81-234); Potassium 4.4 mmol/L (3.5-5.1); Sodium 141 mmol/L (136-145); Total Protein 6.8 g/dL (6.4-8.2)
== END 2019-11-06 23:59 | disposition home or self-care (01) ==
LOC: INF 10:35
PROVIDERS: PCP Nurse Practitioner Family; Visit Provider Internal Medicine Hematology & Oncology
DX: C82.18 Follicular lymphoma grade II, lymph nodes of multiple sites (principal); Z45.2 Encounter for adjustment and management of vascular access device
CPT/HCPCS: 36591; 80053; 83615; 85025

== ENCOUNTER 2019-11-29 01:13 | Outpatient (CLI) | payer OTHER, SELFPAY ==
--- NOTE | 2019-11-29 07:45 | DI.US_ITS ---
EXAM: US PELVIS TRANSVAGINAL CLINICAL HISTORY: Pelvic heaviness,PAIN IN FEMALE,R10.2. TECHNIQUE: Transabdominal and transvaginal pelvic ultrasound was performed using standard protocol. COMPARISON: US PELVIS TRANSVAG from 10/01/[address] neck chest abd pel w from 08/17/2018 FINDINGS: KIDNEYS: Kidneys are symmetric in size. No evidence of renal calculi. No evidence of hydronephrosis. Note is made of a 1.1 x 0.8 x 1.1 cm simple right renal cyst. UTERUS: Position: Anteverted. Size: 7.2 long by 4.2 AP by 6.5 transverse cm Endometrium: Obscured by the calcified uterine fibroid. Myometrium: There is a calcified uterine fibroid centered in the upper body and fundus of the uterus. This is visualized on the CT scan from 08/17/2018. Cervix: Unremarkable. OVARIES: Right: Not visualized on this examination. No right adnexal mass is seen. Left: Not visualized on this examination. No left adnexal mass is seen. CUL-DE-SAC: Free fluid: None. Other: None. IMPRESSION: 1. Note is made of a simple right renal cyst. 2. Calcified uterine fibroid. 3. Uterine fibroid obscures endometrial stripe. 4. Ovaries not visualized transabdominally or transvaginally. No adnexal mass is seen sonographicall y. DATA REPOSITORY:
== END 2019-11-29 01:33 ==
PROVIDERS: PCP Nurse Practitioner Family; Visit Provider Nurse Practitioner Women's Health
DX: N28.1 Cyst of kidney, acquired (principal); C25.9 Malignant neoplasm of pancreas, unspecified; R10.2 Pelvic and perineal pain
CPT/HCPCS: 76830; 76856

== ENCOUNTER 2019-12-19 01:16 | Outpatient (RCR) | payer OTHER, SELFPAY ==
[2019-12-19] MEDS: Heparin 500 UNITS/5 ML SYRINGE IV (08:54)
[2019-12-19] MEDS: Normal Saline Flush 10 ML SYR IVP (08:54)
[2019-12-19 09:00] LABS: Abs Immature Grans 0.05 10^3/uL (0.0-0.06); Absolute Basophil Count 0.04 10^3/uL (0.0-0.2); Absolute Eosinophil Count 0.16 10^3/uL (0.0-0.7); Absolute Lymphocyte Count 0.61 10^3/uL (1.2-3.4); Absolute Monocyte Count 0.38 10^3/uL (0.1-0.8); Absolute Neutrophil Count 1.92 10^3/uL (1.2-6.7); Basophils % 1.3; Eosinophils % 5.1; HCT 39.4 % (36.0-46.0); Immature Grans % 1.6; Lymphocytes % 19.3; MCH 32.9 pg (27.0-33.0); MCV 99.7 fL (80-95); MPV 10.1 fL (8.0-11.0); Neutrophils % 60.7; Nucleated RBC 0 %; Platelet Count 166 10^3/uL (130-400); RBC 3.95 10^6/uL (3.93-5.22); RDW 12.6 % (11.7-14.6); RDW-SD 46.3 fL; WBC 3.16 10^3/uL (4.4-10.8)
[2019-12-19 09:12] LABS: ALT 24 U/L (14-59); AST 20 U/L (15-37); Albumin 3.8 g/dL (3.4-5.0); Alkaline Phosphatase 69 U/L (46-116); Anion Gap 7.7 mmol/L (3-11); BUN 17 mg/dL (7-18); Bilirubin, Total 0.5 mg/dL (0.2-1.0); CO2 25.3 mmol/L (21.0-32.0); Calcium 9.3 mg/dL (8.5-10.1); Chloride 107 mmol/L (98-107); Glucose 102 mg/dL (74-106); LDH 200 U/L (81-234); Potassium 4.4 mmol/L (3.5-5.1); Sodium 140 mmol/L (136-145); Total Protein 6.6 g/dL (6.4-8.2)
== END 2020-01-06 23:59 | disposition home or self-care (01) ==
LOC: INF 01:16
PROVIDERS: PCP Nurse Practitioner Family; Visit Provider Internal Medicine Hematology & Oncology
DX: C82.18 Follicular lymphoma grade II, lymph nodes of multiple sites (principal); Z45.2 Encounter for adjustment and management of vascular access device
CPT/HCPCS: 36591; 80053; 83615; 85025

== ENCOUNTER 2020-08-21 01:58 | Outpatient (RCR) | payer OTHER, SELFPAY ==
[2020-08-21] MEDS: Normal Saline Flush 10 ML SYR IVP (08:21)
[2020-08-21 08:23] LABS: Abs Immature Grans 0.03 10^3/uL (0.0-0.06); Absolute Basophil Count 0.03 10^3/uL (0.0-0.2); Absolute Eosinophil Count 0.12 10^3/uL (0.0-0.7); Absolute Lymphocyte Count 0.57 10^3/uL (1.2-3.4); Absolute Monocyte Count 0.31 10^3/uL (0.1-0.8); Absolute Neutrophil Count 1.47 10^3/uL (1.2-6.7); Basophils % 1.2; Eosinophils % 4.7; HCT 38.9 % (36.0-46.0); HGB 12.7 g/dL (11.2-15.7); Immature Grans % 1.2; Lymphocytes % 22.5; MCH 33.1 pg (27.0-33.0); MCHC 32.6 % (32.0-36.0); MCV 101.3 fL (80-95); MPV 10.5 fL (8.0-11.0); Monocytes % 12.3; Neutrophils % 58.1; Nucleated RBC 0 %; Platelet Count 148 10^3/uL (130-400); RBC 3.84 10^6/uL (3.93-5.22); RDW 12.7 % (11.7-14.6); RDW-SD 47.6 fL; WBC 2.53 10^3/uL (4.4-10.8)
[2020-08-21 08:40] LABS: ALT 19 U/L (14-59); AST 22 U/L (15-37); Alkaline Phosphatase 55 U/L (46-116); Anion Gap 9.7 mmol/L (3-11); BUN 22 mg/dL (7-18); Bilirubin, Total 0.6 mg/dL (0.2-1.0); CO2 25.3 mmol/L (21.0-32.0); CREATININE 0.9 mg/dL (0.55-1.02); Calcium 9.5 mg/dL (8.5-10.1); Chloride 109 mmol/L (98-107); Glucose 115 mg/dL (74-106); LDH 212 U/L (81-234); Potassium 4.2 mmol/L (3.5-5.1); Sodium 144 mmol/L (136-145); Total Protein 6.7 g/dL (6.4-8.2)
== END 2020-09-04 23:59 | disposition home or self-care (01) ==
LOC: INF 01:58
PROVIDERS: Internal Medicine Hematology & Oncology; PCP Nurse Practitioner Family; Visit Provider Internal Medicine Hematology & Oncology
DX: C83.18 Mantle cell lymphoma, lymph nodes of multiple sites (principal); Z45.2 Encounter for adjustment and management of vascular access device
CPT/HCPCS: 36591; 80053; 83615; 85025

== ENCOUNTER 2020-10-11 03:49 | Outpatient (CLI) | payer OTHER, SELFPAY ==
--- NOTE | 2020-10-11 | DI.MAMMO_ITS ---
Exam(s) MAMMO SCREENING EXAM: MAMMO SCREENING CLINICAL HISTORY: SCREENING, Z12.39 TECHNIQUE: Mammograms were interpreted according to the usual protocol including computer analysis w [employer] CAD system, tomosynthesis and C-view imaging. COMPARISON: FINDINGS: The breasts are heterogeneously dense. No dominant mass or clumped microcalcification is identified in either breast. The current examination is compared with previous examinations including August 2019 and there has been no gross interval change in appearance comparison with previous studies. IMPRESSION: No specific evidence of malignancy at this time. Routine screening examinations are suggested at yea rly intervals due to the family history of breast carcinoma. BI-RADS Category 1 - Negative Breast Density - Category C - Heterogeneously dense
== END 2020-10-11 04:09 ==
PROVIDERS: PCP Nurse Practitioner Family; Visit Provider Nurse Practitioner Women's Health
DX: Z12.31 Encounter for screening mammogram for malignant neoplasm of breast (principal); Z80.3 Family history of malignant neoplasm of breast
CPT/HCPCS: 77063; 77067

== ENCOUNTER 2020-10-23 01:34 | Outpatient (RCR) | payer OTHER, SELFPAY ==
[2020-10-23] MEDS: Normal Saline Flush 10 ML SYR IVP (07:03)
[2020-10-23 07:44] LABS: Abs Immature Grans 0.03 10^3/uL (0.0-0.06); Absolute Basophil Count 0.05 10^3/uL (0.0-0.2); Absolute Eosinophil Count 0.17 10^3/uL (0.0-0.7); Absolute Lymphocyte Count 0.61 10^3/uL (1.2-3.4); Absolute Monocyte Count 0.36 10^3/uL (0.1-0.8); Absolute Neutrophil Count 1.64 10^3/uL (1.2-6.7); Basophils % 1.7; Eosinophils % 5.9; HCT 38.7 % (36.0-46.0); HGB 12.6 g/dL (11.2-15.7); Lymphocytes % 21.3; MCH 32.9 pg (27.0-33.0); MCHC 32.6 % (32.0-36.0); MPV 10.7 fL (8.0-11.0); Monocytes % 12.6; Neutrophils % 57.5; Nucleated RBC 0 %; Platelet Count 147 10^3/uL (130-400); RBC 3.83 10^6/uL (3.93-5.22); RDW 12.4 % (11.7-14.6); RDW-SD 46.4 fL; WBC 2.86 10^3/uL (4.4-10.8)
[2020-10-23 08:03] LABS: ALT 21 U/L (14-59); AST 18 U/L (15-37); Albumin 4.1 g/dL (3.4-5.0); Alkaline Phosphatase 61 U/L (46-116); Anion Gap 8.2 mmol/L (3-11); BUN 19 mg/dL (7-18); Bilirubin, Total 0.5 mg/dL (0.2-1.0); CO2 25.8 mmol/L (21.0-32.0); CREATININE 0.9 mg/dL (0.55-1.02); Calcium 9.5 mg/dL (8.5-10.1); Chloride 109 mmol/L (98-107); Glucose 117 mg/dL (74-106); LDH 218 U/L (81-234); Potassium 4.3 mmol/L (3.5-5.1); Sodium 143 mmol/L (136-145); Total Protein 6.6 g/dL (6.4-8.2)
== END 2020-11-05 23:59 | disposition home or self-care (01) ==
LOC: INF 01:34
PROVIDERS: PCP Nurse Practitioner Family; Visit Provider Internal Medicine Hematology & Oncology
DX: Z45.2 Encounter for adjustment and management of vascular access device; C82.18 Follicular lymphoma grade II, lymph nodes of multiple sites
CPT/HCPCS: 36591; 80053; 83615; 85025

== ENCOUNTER 2020-12-18 03:22 | Outpatient (RCR) | payer MEDICARE, SELFPAY ==
[2020-12-18] MEDS: Normal Saline Flush 10 ML SYR IVP (09:49)
[2020-12-18 10:01] LABS: Abs Immature Grans 0.03 10^3/uL (0.0-0.06); Absolute Basophil Count 0.05 10^3/uL (0.0-0.2); Absolute Eosinophil Count 0.14 10^3/uL (0.0-0.7); Absolute Monocyte Count 0.36 10^3/uL (0.1-0.8); Absolute Neutrophil Count 1.46 10^3/uL (1.2-6.7); Basophils % 1.8; Eosinophils % 5.1; HCT 39.3 % (36.0-46.0); HGB 12.8 g/dL (11.2-15.7); Immature Grans % 1.1; Lymphocytes % 25.5; MCH 33.2 pg (27.0-33.0); MCHC 32.6 % (32.0-36.0); MCV 102.1 fL (80-95); MPV 10.2 fL (8.0-11.0); Monocytes % 13.1; Neutrophils % 53.4; Nucleated RBC 0 %; Platelet Count 166 10^3/uL (130-400); RBC 3.85 10^6/uL (3.93-5.22); RDW 12.7 % (11.7-14.6); RDW-SD 47.8 fL; WBC 2.74 10^3/uL (4.4-10.8)
[2020-12-18 10:20] LABS: ALT 21 U/L (14-59); AST 15 U/L (15-37); Albumin 3.9 g/dL (3.4-5.0); Alkaline Phosphatase 58 U/L (46-116); Anion Gap 8.4 mmol/L (3-11); BUN 15 mg/dL (7-18); Bilirubin, Total 0.6 mg/dL (0.2-1.0); CO2 26.6 mmol/L (21.0-32.0); CREATININE 0.9 mg/dL (0.55-1.02); Calcium 9.4 mg/dL (8.5-10.1); Chloride 107 mmol/L (98-107); Glucose 132 mg/dL (74-106); LDH 205 U/L (81-234); Potassium 4.4 mmol/L (3.5-5.1); Sodium 142 mmol/L (136-145); Total Protein 6.9 g/dL (6.4-8.2)
== END 2021-01-05 23:59 | disposition home or self-care (01) ==
LOC: INF 03:22
PROVIDERS: Internal Medicine Hematology & Oncology; PCP Nurse Practitioner Family; Visit Provider Internal Medicine Hematology & Oncology
DX: C82.18 Follicular lymphoma grade II, lymph nodes of multiple sites (principal); Z45.2 Encounter for adjustment and management of vascular access device
CPT/HCPCS: 36591; 80053; 83615; 85025

== ENCOUNTER 2021-07-16 08:46 | Outpatient (RCR) | payer MEDICARE, SELFPAY ==
[2021-07-16 09:06] LABS: Abs Immature Grans 0.04 10^3/uL (0.0-0.06); Absolute Basophil Count 0.04 10^3/uL (0.0-0.2); Absolute Eosinophil Count 0.14 10^3/uL (0.0-0.7); Absolute Lymphocyte Count 0.87 10^3/uL (1.2-3.4); Absolute Monocyte Count 0.47 10^3/uL (0.1-0.8); Absolute Neutrophil Count 2.27 10^3/uL (1.2-6.7); Eosinophils % 3.7; HCT 36.7 % (36.0-46.0); HGB 11.9 g/dL (11.2-15.7); Lymphocytes % 22.7; MCH 32.2 pg (27.0-33.0); MCHC 32.4 % (32.0-36.0); MCV 99 fL (80-95); Monocytes % 12.3; Neutrophils % 59.3; Platelet Count 200 10^3/uL (130-400); RDW 13.6 % (11.7-14.6); RDW-SD 49.4 fL; WBC 3.83 10^3/uL (4.4-10.8)
[2021-07-16 09:22] LABS: ALT 26 U/L (14-59); AST 26 U/L (15-37); Albumin 3.6 g/dL (3.4-5.0); Alkaline Phosphatase 97 U/L (46-116); Anion Gap 9.9 mmol/L (3-11); BUN 12 mg/dL (7-18); Bilirubin, Total 0.6 mg/dL (0.2-1.0); CO2 25.1 mmol/L (21.0-32.0); CREATININE 0.8 mg/dL (0.55-1.02); Calcium 9.1 mg/dL (8.5-10.1); Chloride 106 mmol/L (98-107); Glucose 96 mg/dL (74-106); LDH 258 U/L (81-234); Potassium 4.2 mmol/L (3.5-5.1); Sodium 141 mmol/L (136-145)
[2021-07-16] MEDS: Normal Saline Flush 10 ML SYR IVP (09:36)
[2021-07-16] MEDS: Heparin 500 UNITS/5 ML SYRINGE (09:36)
== END 2021-08-05 23:59 | disposition home or self-care (01) ==
LOC: INF 08:46
PROVIDERS: PCP Nurse Practitioner Family; Visit Provider Internal Medicine Hematology & Oncology
DX: C82.18 Follicular lymphoma grade II, lymph nodes of multiple sites (principal); Z45.2 Encounter for adjustment and management of vascular access device
CPT/HCPCS: 36591; 80053; 83615; 85025

== ENCOUNTER → 2021-08-19 08:27 | Outpatient (BNVA) | payer MEDICARE, SELFPAY | PROVIDERS: PCP Physician Assistant; Referring Provider Physician Assistant; Visit Provider Surgery | DX: K64.9 Unspecified hemorrhoids (principal); Z90.49 Acquired absence of other specified parts of digestive tract; K57.90 Diverticulosis of intestine, part unspecified, without perforation or abscess without bleeding | CPT/HCPCS: 99212 ==

== ENCOUNTER 2021-09-17 07:31 | Outpatient (RCR) | payer MEDICARE, SELFPAY ==
[2021-09-17] MEDS: Normal Saline Flush 10 ML SYR IVP (09:18)
[2021-09-17 09:28] LABS: Abs Immature Grans 0.02 10^3/uL (0.0-0.06); Absolute Basophil Count 0.03 10^3/uL (0.0-0.2); Absolute Eosinophil Count 0.13 10^3/uL (0.0-0.7); Absolute Neutrophil Count 1.95 10^3/uL (1.2-6.7); Basophils % 0.9; HCT 37.2 % (36.0-46.0); Immature Grans % 0.6; Lymphocytes % 21.7; MCH 31.9 pg (27.0-33.0); MCHC 32.3 % (32.0-36.0); MCV 99 fL (80-95); MPV 10.6 fL (8.0-11.0); Monocytes % 12.4; Neutrophils % 60.4; Platelet Count 177 10^3/uL (130-400); RBC 3.76 10^6/uL (3.93-5.22); RDW 13.5 % (11.7-14.6); WBC 3.23 10^3/uL (4.4-10.8)
[2021-09-17 09:46] LABS: ALT 24 U/L (14-59); AST 18 U/L (15-37); Albumin 3.6 g/dL (3.4-5.0); Alkaline Phosphatase 95 U/L (46-116); Anion Gap 8.7 mmol/L (3-11); BUN 15 mg/dL (7-18); Bilirubin, Total 0.5 mg/dL (0.2-1.0); CO2 25.3 mmol/L (21.0-32.0); CREATININE 0.9 mg/dL (0.55-1.02); Calcium 9.2 mg/dL (8.5-10.1); Chloride 107 mmol/L (98-107); Glucose 117 mg/dL (74-106); LDH 220 U/L (81-234); Potassium 4.5 mmol/L (3.5-5.1); Sodium 141 mmol/L (136-145); Total Protein 6.7 g/dL (6.4-8.2)
== END 2021-10-05 23:59 | disposition home or self-care (01) ==
LOC: INF 07:31
PROVIDERS: PCP Physician Assistant; Visit Provider Internal Medicine Hematology & Oncology
DX: C82.18 Follicular lymphoma grade II, lymph nodes of multiple sites (principal); Z45.2 Encounter for adjustment and management of vascular access device
CPT/HCPCS: 36591; 80053; 83615; 85025

== ENCOUNTER → 2021-09-26 01:37 | Outpatient (CLI) | payer MEDICARE, SELFPAY ==
--- NOTE | 2021-09-26 08:00 | DI.MAMMO_ITS ---
Exam(s) MAMMO SCREENING EXAM: MAMMO SCREENING CLINICAL HISTORY: SCREENING, Z12.39 TECHNIQUE: Mammograms were interpreted according to the usual protocol including computer analysis w [employer] CAD system, tomosynthesis and C-view imaging. COMPARISON: 2014 through 2020 FINDINGS: The breasts are composed of heterogeneously dense fibroglandular densities, Breast Density category C . No suspicious masses or suspicious microcalcifications are seen. No skin thickening or abnormal axillary lymph nodes are seen. There has been no significant change from prior exams. IMPRESSION: BI-RADS Category 1, Negative mammogram. Yearly screening mammography is recommended. Breast Density Category C, heterogeneously Dense. The mammogram demonstrates the patient's breast tissue is dense. Dense breast tissue is very common a nd is not abnormal but dense breast tissue can make it harder to find cancer on a mammogram. Also, de nse breast tissue may increase breast cancer risk. This information about the result of the mammogram report was provided to the patient to raise their awareness. Use this report when you speak with the patient about their risks for breast cancer, which includes their family history. At that time, you may recommend additional screening tests (Ultrasound or MRI) as they might be useful based on their r isk. A negative radiographic report should not delay biopsy if a dominant or clinically suspicious mass is present. Up to ten percent of cancers are not identified on mammography. A negative report may reinforce clinical impression. Adenosis and dense breasts may obscure an underlying neoplasm. False positive reports average 6 to 10%.
== END ==
PROVIDERS: PCP Physician Assistant; Visit Provider Physician Assistant
DX: Z12.31 Encounter for screening mammogram for malignant neoplasm of breast (principal)
CPT/HCPCS: 77063; 77067

== ENCOUNTER → 2021-11-03 02:46 | Outpatient (CLI) | payer MEDICARE, SELFPAY ==
--- NOTE | 2021-11-03 | DI.CT_ITS ---
Exam(s) CT CHEST/ABD/PEL W EXAM: CT CHEST/ABD/PEL W CLINICAL HISTORY: LYMPHOMA,C82.18,NEW BASELINE S/P TREATMENT TECHNIQUE: Imaging Protocol: Axial computed tomography images with coronal and sagittal reformatted images were created and reviewed CONTRAST MATERIAL: Intravenous: Omnipaque 350 contrast volume:100 mL Oral: Yes FINDINGS: CHEST: Tracheobronchial tree: Patent where visualized. Pulmonary parenchyma: Multifocal predominantly ground-glass opacities are seen in the right upper lob e and right lower lobe. The lungs are otherwise clear. No architectural distortion. Visualized thyroid gland: Unremarkable. Mediastinum and Shira: No dominant adenopathy or fluid collection. The esophagus is unremarkable. Pleura: No effusion or pneumothorax. Heart: The heart is not dilated. Mild coronary artery calcification is present. No pericardial effus ion. Pulmonary arteries: No pulmonary emboli are identified. Aorta: Thoracic aorta non-dilated. Mild atherosclerosis. Lymph nodes: Within normal limits. Tubes, Catheters, and Lines: The tip of the right sided indwelling catheter is in good position at th e cavoatrial junction. Soft tissues: Unremarkable. Bones:Within normal limits for the patient's age. There is a healing right 11th rib fracture. ABDOMEN: Liver: Normal density. No measurable mass. Portal, Superior Mesenteric, and Splenic Veins: Unremarkable. Gallbladder and Biliary Tract: Status post cholecystectomy. No biliary ductal dilatation. Pancreas: Fatty replacement of the pancreas is noted. Spleen: Normal. Adrenals: No masses seen. Kidneys: Normal size, contour and axis. No radiodense stones or obstructive uropathy. No masses seen. Stable mild left pelvocaliectasis. Abdominal Aorta: Abdominal portion non-dilated. Atherosclerosis. Bowel: No obstruction or bowel wall thickening. Appendix is unremarkable. There is diverticulosis of the sigmoid colon, but no evidence of acute diverticulitis. Peritoneal Cavity: No ascites, collection or mesenteric inflammatory response. No free air. Lymph Nodes: There has been no change in appearance of the retroperitoneal lymph nodes and associated stranding since 12/12/2020. No enlarged lymph nodes are seen in the abdomen or pelvis. Bones: Within normal limits for the patient's age. Grade 1 pseudo spondylolisthesis of L4 on L5. Soft Tissues: Unremarkable. PELVIS: Bladder: Symmetric distention, no gross wall thickening. Reproductive Organs: There are calcified uterine fibroids present. Lymph Nodes: Within normal limits. Bones: Within normal limits. IMPRESSION: 1. Multifocal ground-glass opacities in the right upper and right lower lobes. This is non-specific an infectious or inflammatory process should be considered. Atypical organisms should be considered. 2. No significant thoracic, abdominal or pelvic adenopathy. 3. Stable appearance of the small retroperitoneal lymph nodes and stranding present. 4. Unremarkable CT scan of the chest. RADIATION DOSE DELIVERED: 1,637.8mGy.cm Total DLP DATA REPOSITORY: All CT scans at this facility are submitted to the National Radiology Data Registry (NRDR) Dose Index Registry (DIR) with the [employer] (A[employer]). RADIATION OPTIMIZATION: All CT scans at this facility use at least one of these dose optimization te chniques: automated exposure control; mA and/or kV adjustment per patient size (includes targeted exa ms where dose is matched to clinical indication); or iterative reconstruction.
[2021-11-03] MEDS: Barium Sulfate 2% W/V-Berry Smoothie 450 ML BTL PO ×2 (10:04→10:05)
[2021-11-03] MEDS: Omnipaque 350 MG/ML 100 ML BTL IJ (12:16)
[2021-11-03] MEDS: Normal Saline Flush 10 ML SYR IVP (12:18)
== END ==
PROVIDERS: PCP Physician Assistant; Visit Provider Nurse Practitioner Adult Health
DX: C82.18 Follicular lymphoma grade II, lymph nodes of multiple sites (principal); R91.8 Other nonspecific abnormal finding of lung field; Z12.89 Encounter for screening for malignant neoplasm of other sites; Z90.49 Acquired absence of other specified parts of digestive tract
CPT/HCPCS: 74177; 71260; J3490

== ENCOUNTER 2021-11-03 03:01 | Outpatient (RCR) | payer MEDICARE, SELFPAY ==
[2021-11-03] MEDS: Heparin 500 UNITS/5 ML SYRINGE IV (08:18)
[2021-11-03] MEDS: Normal Saline Flush 10 ML SYR IVP (08:18)
[2021-11-03 11:46] LABS: Abs Immature Grans 0.04 10^3/uL (0.0-0.06); Absolute Basophil Count 0.03 10^3/uL (0.0-0.2); Absolute Eosinophil Count 0.11 10^3/uL (0.0-0.7); Absolute Lymphocyte Count 0.69 10^3/uL (1.2-3.4); Absolute Monocyte Count 0.59 10^3/uL (0.1-0.8); Absolute Neutrophil Count 2.55 10^3/uL (1.2-6.7); Basophils % 0.7; Eosinophils % 2.7; HCT 36.3 % (36.0-46.0); HGB 11.8 g/dL (11.2-15.7); Lymphocytes % 17.2; MCH 31.5 pg (27.0-33.0); MCHC 32.5 % (32.0-36.0); MCV 97 fL (80-95); MPV 10.2 fL (8.0-11.0); Monocytes % 14.7; Neutrophils % 63.7; Platelet Count 189 10^3/uL (130-400); RBC 3.75 10^6/uL (3.93-5.22); RDW 13.1 % (11.7-14.6); RDW-SD 46.2 fL; WBC 4.01 10^3/uL (4.4-10.8)
[2021-11-03 12:01] LABS: ALT 27 U/L (14-59); AST 27 U/L (15-37); Albumin 3.3 g/dL (3.4-5.0); Alkaline Phosphatase 101 U/L (46-116); Anion Gap 6.9 mmol/L (3-11); BUN 14 mg/dL (7-18); Bilirubin, Total 0.5 mg/dL (0.2-1.0); CO2 28.1 mmol/L (21.0-32.0); CREATININE 0.7 mg/dL (0.55-1.02); Calcium 9.2 mg/dL (8.5-10.1); Chloride 104 mmol/L (98-107); Glucose 108 mg/dL (74-106); LDH 234 U/L (81-234); Potassium 4.7 mmol/L (3.5-5.1); Sodium 139 mmol/L (136-145); Total Protein 7.1 g/dL (6.4-8.2)
== END 2021-11-05 23:59 | disposition home or self-care (01) ==
LOC: INF 03:01
PROVIDERS: Nurse Practitioner Family; PCP Physician Assistant; Visit Provider Internal Medicine Hematology & Oncology
DX: C82.18 Follicular lymphoma grade II, lymph nodes of multiple sites (principal); Z45.2 Encounter for adjustment and management of vascular access device
CPT/HCPCS: 36591; 80053; 83615; 85025

== ENCOUNTER 2022-07-15 11:02 | Outpatient (REF) | payer MEDICARE, SELFPAY | END 2022-07-15 11:03 | disposition home or self-care (01) | LOC: LBN 11:02 | PROVIDERS: PCP Physician Assistant; Visit Provider Nurse Practitioner Women's Health | DX: N89.8 Other specified noninflammatory disorders of vagina (principal) | CPT/HCPCS: 87480; 87510; 87660 ==

== ENCOUNTER 2022-07-22 03:05 | Outpatient (CLI) | payer MEDICARE, SELFPAY ==
[2022-07-22 10:19] LABS: Abs Immature Grans 0.03 10^3/uL (0.0-0.06); Absolute Basophil Count 0.08 10^3/uL (0.0-0.2); Absolute Eosinophil Count 0.23 10^3/uL (0.0-0.7); Absolute Lymphocyte Count 0.97 10^3/uL (1.2-3.4); Absolute Monocyte Count 0.48 10^3/uL (0.1-0.8); Absolute Neutrophil Count 3.43 10^3/uL (1.2-6.7); Basophils % 1.5; Eosinophils % 4.4; HCT 40.1 % (36.0-46.0); HGB 13.2 g/dL (11.2-15.7); Immature Grans % 0.6; Lymphocytes % 18.6; MCH 32.7 pg (27.0-33.0); MCHC 32.9 % (32.0-36.0); MCV 99 fL (80-95); MPV 9.9 fL (8.0-11.0); Monocytes % 9.2; Neutrophils % 65.7; Platelet Count 204 10^3/uL (130-400); RBC 4.04 10^6/uL (3.93-5.22); RDW 13.6 % (11.7-14.6); WBC 5.22 10^3/uL (4.4-10.8)
[2022-07-22 10:30] LABS: ALT 24 U/L (14-59); AST 17 U/L (15-37); Albumin 3.9 g/dL (3.4-5.0); Alkaline Phosphatase 82 U/L (46-116); Anion Gap 6.9 mmol/L (3-11); BUN 17 mg/dL (7-18); Bilirubin, Total 0.4 mg/dL (0.2-1.0); CO2 27.1 mmol/L (21.0-32.0); CREATININE 0.9 mg/dL (0.55-1.02); Calcium 9.6 mg/dL (8.5-10.1); Chloride 104 mmol/L (98-107); Estimated GFR 68.77 (mL/min/1.73m2); Glucose 100 mg/dL (74-106); LDH 167 U/L (81-234); Potassium 4.2 mmol/L (3.5-5.1); Sodium 138 mmol/L (136-145); Total Protein 7.2 g/dL (6.4-8.2)
== END 2022-07-22 03:06 | disposition home or self-care (01) ==
LOC: LBO 03:06
PROVIDERS: PCP Physician Assistant; Visit Provider Internal Medicine Hematology & Oncology
DX: C82.18 Follicular lymphoma grade II, lymph nodes of multiple sites (principal)
CPT/HCPCS: 36415; 80053; 83615; 85025

== ENCOUNTER 2022-12-09 11:03 | Outpatient (CLI) | payer MEDICARE, SELFPAY ==
[2022-12-09 11:17] LABS: Abs Immature Grans 0.02 10^3/uL (0.0-0.06); Absolute Basophil Count 0.06 10^3/uL (0.0-0.2); Absolute Eosinophil Count 0.16 10^3/uL (0.0-0.7); Absolute Lymphocyte Count 1.29 10^3/uL (1.2-3.4); Absolute Monocyte Count 0.43 10^3/uL (0.1-0.8); Absolute Neutrophil Count 2.65 10^3/uL (1.2-6.7); Basophils % 1.3; Eosinophils % 3.5; HCT 39.2 % (36.0-46.0); HGB 12.9 g/dL (11.2-15.7); Immature Grans % 0.4; MCHC 32.9 % (32.0-36.0); MCV 100 fL (80-95); MPV 9.9 fL (8.0-11.0); Monocytes % 9.3; Neutrophils % 57.5; Platelet Count 167 10^3/uL (130-400); RBC 3.91 10^6/uL (3.93-5.22); RDW-SD 48.2 fL; WBC 4.61 10^3/uL (4.4-10.8)
[2022-12-09 11:32] LABS: ALT 18 U/L (14-59); AST 22 U/L (15-37); Albumin 3.9 g/dL (3.4-5.0); Alkaline Phosphatase 51 U/L (46-116); Anion Gap 8.2 mmol/L (3-11); BUN 20 mg/dL (7-18); Bilirubin, Total 0.8 mg/dL (0.2-1.0); CO2 25.8 mmol/L (21.0-32.0); Calcium 9.7 mg/dL (8.5-10.1); Chloride 105 mmol/L (98-107); Estimated GFR 60.61 (mL/min/1.73m2); Glucose 103 mg/dL (74-106); LDH 177 U/L (81-234); Potassium 4.7 mmol/L (3.5-5.1); Sodium 139 mmol/L (136-145)
== END 2022-12-09 11:04 | disposition home or self-care (01) ==
LOC: LBO 11:03
PROVIDERS: PCP Physician Assistant; Visit Provider Internal Medicine Hematology & Oncology
DX: C82.18 Follicular lymphoma grade II, lymph nodes of multiple sites (principal)
CPT/HCPCS: 36415; 80053; 83615; 85025

== ENCOUNTER 2023-08-18 01:57 | Outpatient (CLI) | payer MEDICARE, SELFPAY ==
[2023-08-18 10:57] LABS: Abs Immature Grans 0.02 10^3/uL (0.0-0.06); Absolute Basophil Count 0.06 10^3/uL (0.0-0.2); Absolute Lymphocyte Count 1.48 10^3/uL (1.2-3.4); Absolute Neutrophil Count 2.72 10^3/uL (1.2-6.7); Basophils % 1.2 %; HCT 39.3 % (36.0-46.0); HGB 12.9 g/dL (11.2-15.7); Immature Grans % 0.4 %; Lymphocytes % 29.7 %; MCH 32.7 pg (27.0-33.0); MCHC 32.8 % (32.0-36.0); MCV 100 fL (80-95); MPV 9.7 fL (8.0-11.0); Neutrophils % 54.7 %; Platelet Count 155 10^3/uL (130-400); RBC 3.95 10^6/uL (3.93-5.22); RDW 12.9 % (11.7-14.6); RDW-SD 47.9 fL; WBC 4.98 10^3/uL (4.4-10.8)
[2023-08-18 11:11] LABS: ALT 27 U/L (14-59); AST 21 U/L (15-37); Albumin 3.8 g/dL (3.4-5.0); Alkaline Phosphatase 57 U/L (46-116); Anion Gap 7.8 mmol/L (3-11); BUN 16 mg/dL (7-18); Bilirubin, Total 0.7 mg/dL (0.2-1.0); CO2 28.2 mmol/L (21.0-32.0); Calcium 9.6 mg/dL (8.5-10.1); Chloride 106 mmol/L (98-107); Estimated GFR 60.23 (mL/min/1.73m2); Glucose 112 mg/dL (74-106); LDH 166 U/L (81-234); Potassium 4.2 mmol/L (3.5-5.1); Sodium 142 mmol/L (136-145); Total Protein 6.6 g/dL (6.4-8.2)
== END 2023-08-18 01:58 | disposition home or self-care (01) ==
PROVIDERS: PCP Physician Assistant; Visit Provider Internal Medicine Hematology & Oncology
DX: C82.18 Follicular lymphoma grade II, lymph nodes of multiple sites (principal)
CPT/HCPCS: 36415; 80053; 83615; 85025

== ENCOUNTER 2023-12-07 11:08 | Emergency (ER) | payer MEDICARE, SELFPAY ==
[2023-12-07 11:11] VITALS: BP 163/90; PULSE 80; RESP 12; TEMP 36.5; O2SAT 97
--- NOTE | 2023-12-07 11:15 | RT.EKG_ITS ---
APPROVED REPORT Exam: Resting ECG Reason for Exam: dizziness Patient Location: E HR:60 bpm ECG Measurements Heart Rate 60 AXIS NH 203 P 22 QRSd 74 QRS 14 QT 378 T 49 QTc 377 Conclusion Sinus rhythm...normal P axis, V-rate 60- 99 Narrow complex normal sinus rhythm at a rate of 60. Normal axis. First-degree AV block NH interval 2 3 ms. QTc within normal limits. No ST segment abnormalities. No T wave versions. No acute injur y pattern. No prior for comparison.
--- NOTE | 2023-12-07 11:24 | ED.GENADUL_ITS ---
Discharge Plan Disposition Patient Disposition: Home Discharge Details Clinical Impression: Dizziness Primary Care Provider: Yaakov Tam ED Provider: Robert Brown Home Meds and New Rx's Prescriptions: Continued oxycodone 5 mg tablet 5 mg PO Q4H PRN omeprazole 20 mg capsule,delayed release(DR/EC) 20 mg PO DAILY senna-docusate sodium Tablet 2 tab PO BID PRN acetaminophen 500 mg tablet 1,000 mg PO Q8H PRN aspirin [Adult Low Dose Aspirin] 81 mg tablet,delayed release (DR/EC) 81 mg PO DAILY naproxen [EC-Naprosyn] 500 mg tablet,delayed release (DR/EC) 500 mg PO BID Discharge Instructions Instructions: Dizziness, Adult ED Additional Instructions: You were seen emergency department for dizziness. Blood work shows your kidneys are working well. As discussed please return to the emergency department if you pass out develop chest pain or develop any weakness in any of your extremities. Otherwise please follow-up with your primary care provider next week. HPI General Date/Time Provider Initiated Documentation: 12/07/23 11:24 . HPI Narrative: MDM This is an overall very well-appearing normothermic and not tachycardic 72-year-old female with a history of non-Hodgkin's lymphoma 7 days postop status post with intermittent dizziness but no nystagmus present the patient able to stand and ambulate independently reassuring against any central causes. No pain or proportion to suggest necrotizing soft tissue infection. Will check labs in the event that there is a component of acute injury to the patient's kidneys as she has been taking naproxen. No black nor bloody stools and the suspicion is low for acute GI bleed. No episodes of syncope so my suspicion for cardiac etiologies of her dizziness is low. No focal neurological deficits and my suspicion is low for CVA. No recent chiropractic manipulation to suggest increased risk for cervical arterial dissection so did not feel that the patient required a CT angiogram. No vomiting or abdominal pain to suggest increased risk for intra-abdominal infection. No shortness of breath or chest pain to suggest postoperative DVT nor PE. Given no nystagmus I did not complete a hints exam. Patient is able to stand and ambulate with her walker. Patient has not had any increased pain from her right lower extremity so my suspicion for postoperative infection is exceedingly low so I did not remove her surgical dressings. 12:35 PM Basic metabolic panel showing no ETIENNE. No acute electrolyte abnormalities. CBC showing mild leukopenia similar to prior. Mild macrocytic anemia. No thrombocytopenia. I met with the patient and explained her reassuring results. We discussed that she should return to the emergency department if she developed any episodes of syncope and any black or bloody stools or if she had any focal areas of weakness. She understood her return indications and was discharged with an empiric trial of expectant outpatient management. Chronic conditions affecting the care of the patient: N/A History obtained from an outside historian: N/A External record review: N/A Diagnostic interpretations performed by me: Per my independent interpretation EKG shows: Narrow complex normal sinus rhythm at a rate of 60. Normal axis. First-degree AV block AK interval 203 ms. QTc within normal limits. No ST segment abnormalities. No T wave versions. No acute injury pattern. No prior for comparison. ]Medications: 500 cc crystalloid Social determinants of health affecting disposition: N/A Management discussed with: N/A Treatment/interventions considered: CT scan but deferred Response to therapies provided: N/A HPI This is a 72-year-old female with a history of non-Hodgkin's lymphoma arrived to the emergency department via private vehicle in the setting of dizziness. Patient is 1 week status post right knee replacement. Patient has been on acetaminophen naproxen and oxycodone. She has been feeling well up until 4 days ago. She is intermittently had dizziness. She has not had any syncope. She last took oxycodone and naproxen at 8:30 PM yesterday evening. She took some acetaminophen at 1 AM this morning. She denies hypertension hyperlipidemia and diabetes. She has not been vomiting. She has not had any falls. She denies headache. She denies black or bloody stools. She denies routine tobacco, ethanol, and illicits. She is not feeling short of breath. Exam General: Well-appearing in no acute distress speaking in complete sentences. Head: Normocephalic, atraumatic. Eye:[Pupils equal, round reactive to light.] Extraocular eye movements intact. No conjunctival injection. No scleral icterus. Ear, nose, mouth, throat: Grossly normal inspection. Normal voice, handling secretions normally. Neck: Trachea midline. Cardiovascular: Well-perfused distal extremities. Regular rate and rhythm. Respiratory: Nonlabored respiration. Clear lungs bilaterally Gastrointestinal: Nondistended abdomen. Musculoskeletal: Right lower extremity with anterior surgical dressing overlying the knee. No calf tenderness. No streaking signs of infection. Skin: Normal for age and race, grossly normal temperature and turgor. No acute rash. Neurologic: Alert and appropriate, no apparent acute deficits. GCS 15. Cranial nerves II through XII intact grossly. No dysmetria. No dysdiadochokinesia. No pronator drift. Psychiatric: Mood and manner are appropriate. Grooming and personal hygiene are appropriate. Related Data Home Medications ?Medication ?Instructions ?Recorded ?Confirmed acetaminophen 500 mg tablet 1,000 mg PO Q8H PRN 12/07/23 12/07/23 aspirin 81 mg tablet,delayed 81 mg PO DAILY 12/07/23 12/07/23 release (Adult Low Dose Aspirin) naproxen 500 mg tablet,delayed 500 mg PO BID 12/07/23 12/07/23 release (EC-Naprosyn) omeprazole 20 mg capsule,delayed 20 mg PO DAILY 12/07/23 12/07/23 release oxycodone 5 mg tablet 5 mg PO Q4H PRN 12/07/23 12/07/23 senna-docusate sodium tablet 2 tab PO BID PRN 12/07/23 12/07/23 Allergies Allergy/AdvReac Type Severity Reaction Status Date / Time No Known Allergies Allergy Unverified 12/07/23 11:16 General Stated Complaint: Dizzy/Sync MARILEE: 3 Course Vital Signs Vital signs: Vital Signs Temperature 36.5 C 12/07/23 11:11 Pulse 80 12/07/23 11:11 Respiratory Rate 12 12/07/23 11:11 Blood Pressure 163/90 H 12/07/23 11:11 Pulse Oximetry 97 12/07/23 11:11 Temperature 36.5 C 12/07/23 11:11 Temperature Source Oral 12/07/23 11:11 Pulse 80 12/07/23 11:11 Respiratory Rate 12 12/07/23 11:11 Respiratory Effort Normal, Non-Labored 12/07/23 11:22 Blood Pressure 163/90 H 12/07/23 11:11 Blood Pressure Position Sitting 12/07/23 11:11 Pulse Oximetry 97 12/07/23 11:11 Oxygen Delivery Method Room Air 12/07/23 11:11 Oxygen Flow Rate 0 12/07/23 11:11 Pain Level 6 12/07/23 11:11 Medical Decision Making Quality:SDOH Health Related Social Needs: No Data to Display PFSH All Active Problems (Updated 12/07/23 @ 12:41 by Robert Brown MD) Dizziness (Acute) Diverticulosis (Acute) Screening for colon cancer (Acute) Diverticulitis (Chronic) S/P cholecystectomy (Acute 08/29/15) steatorhea since surgery improved w/ probiotics, less processed foods, bulking agent Non Hodgkin's lymphoma (Chronic) Telogen effluvium (Chronic) Medical History Hot flashes Hyperlipidemia Obesity Osteoarthritis Piriformis syndrome Rosacea Surgical History Colonoscopy - [facility] (12/13/15) H/O lymph node excision (~08/24/18) History of cholecystectomy History of knee replacement Family History Sister Colon cancer Breast cancer Brother Brain cancer Father Heart failure Heart disease Maternal Grandfather Tiffanie syndrome Paternal Grandfather Stroke Mother Alzheimer disease Social History Smoking/Tobacco Use Status: Former Tobacco Use Quit Date: 03/08/94 Smoking risk assessment performed?: Yes Alcohol Intake: current Alcohol Intake frequency: 3 or more drinks per day Alcohol type: wine and hard liquor Drug use: Never Substance use type: does not use Details: Pt states 2-3, usually wine/daily; quit smoking est 1988. Last alcohol: t-1, one drink Housing: house Do you feel safe at home: Yes Do you feel safe in your relationship?: Yes Female Reproductive History Menstrual Menopause type: natural History History 2 Para 2 Hx # Term Pregnancies Multiple births Hx # Pregnancies Ectopic pregnancies AB induced Hx Number of Living Children AB spontaneous PAWSS Have you Been Recently Intoxicated or Drunk Within the Last 30 days?: No Have you Ever Experienced Previous Episodes of Alcohol Withdrawal?: No Have you ever Experienced Withdrawal Seizures?: No Have you ever Experienced Delirium Tremens(DT)s?: No Have you ever undergone Alcohol Rehabilitation Treatment (i.e, inpt ot outpatient treatment programs)?: No Have you ever Experienced Blackouts?: No Have you ever Combined Alcohol with other Downers within the last 90 days?: No Have you ever Combined Alcohol with any other Substance of Abuse during the last 90 days?: No Positive Blood Alcohol level on Presentation? [PCS.BAL]: No Evidence of Increased Autonomic Activity (i.e. HR>120, tremor, sweating, agitation, nausea)?: No Result: 0
[2023-12-07 12:05] VITALS: BP 158/74; PULSE 78
[2023-12-07] MEDS: Normal Saline 500 ML IV (12:07)
[2023-12-07 12:10] LABS: Abs Immature Grans 0.02 10^3/uL (0.0-0.06); Absolute Basophil Count 0.05 10^3/uL (0.0-0.2); Absolute Eosinophil Count 0.16 10^3/uL (0.0-0.7); Absolute Lymphocyte Count 1.19 10^3/uL (1.2-3.4); Absolute Neutrophil Count 2.51 10^3/uL (1.2-6.7); Basophils % 1.2 %; Eosinophils % 3.7 %; HCT 34.6 % (36.0-46.0); HGB 11.1 g/dL (11.2-15.7); Immature Grans % 0.5 %; Lymphocytes % 27.5 %; MCH 31.6 pg (27.0-33.0); MCHC 32.1 % (32.0-36.0); MCV 99 fL (80-95); MPV 9.6 fL (8.0-11.0); Monocytes % 9.2 %; Neutrophils % 57.9 %; Platelet Count 207 10^3/uL (130-400); RBC 3.51 10^6/uL (3.93-5.22); RDW 12.9 % (11.7-14.6); RDW-SD 46.2 fL; WBC 4.33 10^3/uL (4.4-10.8)
[2023-12-07 12:30] LABS: Anion Gap 7.5 mmol/L (3-11); BUN 23 mg/dL (7-18); CO2 26.5 mmol/L (21.0-32.0); Calcium 9.8 mg/dL (8.5-10.1); Chloride 103 mmol/L (98-107); Estimated GFR 60.23 (mL/min/1.73m2); Glucose 104 mg/dL (74-106); Potassium 4.5 mmol/L (3.5-5.1); Sodium 137 mmol/L (136-145)
== END 2023-12-07 13:04 | disposition home or self-care (01) ==
PROVIDERS: Emergency Provider Emergency Medicine; PCP Physician Assistant
DX: R42 Dizziness and giddiness (principal)
CPT/HCPCS: 80048; 93005; 96360; 99284; 85025; 93010; 99283

== ENCOUNTER 2023-12-14 14:40 | Outpatient (CLI) | payer MEDICARE, SELFPAY ==
[2023-12-14 14:14] LABS: Abs Immature Grans 0.06 10^3/uL (0.0-0.06); Absolute Basophil Count 0.07 10^3/uL (0.0-0.2); Absolute Lymphocyte Count 1.55 10^3/uL (1.2-3.4); Absolute Monocyte Count 0.38 10^3/uL (0.1-0.8); Absolute Neutrophil Count 4.92 10^3/uL (1.2-6.7); Eosinophils % 2.8 %; HCT 35.6 % (36.0-46.0); HGB 11.6 g/dL (11.2-15.7); Immature Grans % 0.8 %; Lymphocytes % 21.6 %; MCHC 32.6 % (32.0-36.0); MCV 98 fL (80-95); MPV 9.5 fL (8.0-11.0); Monocytes % 5.3 %; Neutrophils % 68.5 %; Platelet Count 289 10^3/uL (130-400); RBC 3.63 10^6/uL (3.93-5.22); RDW 13.1 % (11.7-14.6); RDW-SD 46.9 fL; WBC 7.18 10^3/uL (4.4-10.8)
[2023-12-14 15:36] LABS: ALT 18 U/L (14-59); AST 16 U/L (15-37); Albumin 3.9 g/dL (3.4-5.0); Alkaline Phosphatase 78 U/L (46-116); Anion Gap 9.4 mmol/L (3-11); BUN 28 mg/dL (7-18); Bilirubin, Total 0.55 mg/dL (0.2-1.0); CO2 25.6 mmol/L (21.0-32.0); CREATININE 1.2 mg/dL (0.55-1.02); Calcium 9.7 mg/dL (8.5-10.1); Chloride 107 mmol/L (98-107); Estimated GFR 48.09 (mL/min/1.73m2); Glucose 118 mg/dL (74-106); LDH 227 U/L (81-234); Potassium 4.1 mmol/L (3.5-5.1); Sodium 142 mmol/L (136-145); Total Protein 7.1 g/dL (6.4-8.2)
== END 2023-12-14 14:41 | disposition home or self-care (01) ==
LOC: LBO 14:40
PROVIDERS: Orthopaedic Surgery; PCP Physician Assistant; Visit Provider Internal Medicine Hematology & Oncology
DX: C82.18 Follicular lymphoma grade II, lymph nodes of multiple sites (principal); M79.604 Pain in right leg; M25.561 Pain in right knee
CPT/HCPCS: 36415; 80053; 83615; 85025; 85730

== ENCOUNTER 2024-06-23 00:16 | Outpatient (CLI) | payer MEDICARE, SELFPAY ==
--- NOTE | 2024-06-23 12:45 | DI.MAMMO_ITS ---
Exam(s) MAMMO SCREENING EXAM: MAMMO SCREENING CLINICAL HISTORY: Z12.39 Screening. TECHNIQUE: Bilateral full field digital CC and MLO mammographic images were obtained with 3D tomosyn thesis and utilizing computer aided detection (CAD). COMPARISON: Prior mammograms were reviewed. FINDINGS: The fibroglandular tissue pattern is again noted be moderately dense. No new right breast findings. In the lateral aspect of the left breast is a small nodular density which is unchanged from prior nasir mograms There are no new spiculated masses nor malignant appearing microcalcification groups. There is no significant architectural distortion nor skin thickening-retraction. IMPRESSION: Stable benign-appearing findings. No radiographic evidence of malignancy. BI-RADS Category 2 - Benign Findings Breast Density - Category C - Heterogeneously dense Breast density Category C or D implies that the patient has dense breast tissue. Dense breast tissue can make it harder to find cancer on a mammogram. Dense breast tissue is also associated with an incr eased risk of breast cancer. This information about the result of the mammogram report was provided to the patient to raise their awareness. Use this report when you speak with the patient about their risks for breast cancer, which includes their family history. At that time, you may recommend additional screening tests (Ultrasoun d or MRI) as these tests may add significant information. A negative radiographic report should not delay biopsy if a dominant or clinically suspicious mass is present. Up to ten percent of cancers are not identified on mammography. A negative report may reinforce clinical impression. Adenosis and dense breasts may obscure an underlying neoplasm. False positive reports average 6 to 10%. Patient will receive a letter notifying them of these results.
== END 2024-06-23 00:36 ==
LOC: DI 00:16
PROVIDERS: PCP Physician Assistant; Visit Provider Physician Assistant
DX: Z12.31 Encounter for screening mammogram for malignant neoplasm of breast (principal); R92.333 Mammographic heterogeneous density, bilateral breasts; D24.2 Benign neoplasm of left breast
CPT/HCPCS: 77063; 77067

== ENCOUNTER 2024-12-27 09:36 | Outpatient (CLI) | payer MEDICARE, SELFPAY ==
[2024-12-27 11:31] LABS: Abs Immature Grans 0.02 10^3/uL (0.0-0.06); HCT 39.7 % (36.0-46.0); HGB 12.9 g/dL (11.2-15.7); Immature Grans % 0.3 %; MCH 30.8 pg (27.0-33.0); MCHC 32.5 % (32.0-36.0); MCV 95 fL (80-95); MPV 9.9 fL (8.0-11.0); Platelet Count 166 10^3/uL (130-400); RBC 4.19 10^6/uL (3.93-5.22); RDW 12.9 % (11.7-14.6); RDW-SD 44.8 fL; WBC 6.25 10^3/uL (4.4-10.8)
[2024-12-27 11:49] LABS: ALT 23 U/L (14-59); AST 18 U/L (15-37); Albumin 3.8 g/dL (3.4-5.0); Alkaline Phosphatase 63 U/L (46-116); Anion Gap 7.4 mmol/L (3-11); BUN 20 mg/dL (7-18); Bilirubin, Total 0.4 mg/dL (0.2-1.0); CO2 28.6 mmol/L (21.0-32.0); Calcium 9.5 mg/dL (8.5-10.1); Chloride 107 mmol/L (98-107); Estimated GFR 67.50 (mL/min/1.73m2); Glucose 109 mg/dL (74-106); LDH 170 U/L (81-234); Potassium 4.4 mmol/L (3.5-5.1); Sodium 143 mmol/L (136-145); Total Protein 6.8 g/dL (6.4-8.2)
== END 2024-12-27 09:37 | disposition home or self-care (01) ==
PROVIDERS: PCP Physician Assistant; Visit Provider Internal Medicine Hematology & Oncology
DX: C82.18 Follicular lymphoma grade II, lymph nodes of multiple sites (principal)
CPT/HCPCS: 36415; 80053; 83615; 85025